=== PATIENT | male | born 1950 | race Caucasian/White ===

== ENCOUNTER 2018-01-03 12:24 | Emergency (ER) | payer MEDICARE, OTHER ==
[~2018-01-03] VITALS: Ht 175.3 cm; Wt 79.4 kg
--- OUTSIDE RECORDS SUMMARY | 2018-01-03 12:26 | XMS REPORT ---
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 Overweight INGUINAL HERNIA 550.90 Active Rodrigue Pace DO Unilateral or unspecified inguinal hernia, without mention of obstruction or gangrene (not specified as recurrent) left side CHRONIC KIDNEY DISEASE STAGE II (MILD) 585.2 Active Tiffanie Duff MD Chronic kidney disease, Stage II (mild) DIABETES MELLITUS, TYPE II, UNCONTROLLED, W/RENAL COMPS 250.42 Active Tiffanie Duff MD Diabetes mellitus with renal manifestations, type II or unspecified type, uncontrolled CAD 414.00 Active Tiffanie Duff MD Coronary atherosclerosis of unspecified type of vessel, salamatof or graft DIABETES MELLITUS 250.00 Active Tiffanie Duff MD Diabetes mellitus without mention of complication, type II or unspecified type, not stated as uncontrolled DYSLIPIDEMIA 272.4 Active Tiffanie Duff MD Other and unspecified hyperlipidemia HYPERTENSION 401.1 Active Tiffanie Duff MD Benign essential hypertension PASSIVE SMOKE EXPOSURE E869.4 Active Luna Snell D.O. Accidental poisoning from second-hand tobacco smoke Medication List Medication Instructions Start Date Stop Date Generic Name NDC Status Provider Patient Instruction JARDIANCE 25 MG ORAL TABLET take 1 tablet daily EMPAGLIFLOZIN 83694357545 Active Jv Chawla MD Active GLIPIZIDE 10 MG ORAL TABLET 1 tab By Mouth BID GLIPIZIDE 73126492470 Active Jv Chawla MD Active ACARBOSE 50 MG ORAL TABLET 1 By Mouth three times a day ACARBOSE 47226079567 Active Jv Chawla MD Active CLOPIDOGREL BISULFATE 75 MG ORAL TABLET 1 Tablet Daily CLOPIDOGREL BISULFATE 19386172474 Active Jv Chawla MD Active SIMVASTATIN 40 MG ORAL TABLET 1 by mouth every night SIMVASTATIN 14896404539 Active Jv Chawla MD Active ASPIRIN 81 MG ORAL TABLET 1 by mouth every day ASPIRIN 72904668873 Active Luna Snell D.O. Active MULTIVITAMINS ORAL CAPSULE has own multivitamin daily MULTIPLE VITAMIN 81179769276 Active Luna Snell D.O. Active LISINOPRIL 10 MG ORAL TABLET 1 Tablet Daily LISINOPRIL 73830972171 Active Jv Chawla MD Active METFORMIN HCL 1000 MG ORAL TABLET 1 Tablet Twice A Day One in Morning And One At night METFORMIN HCL 63112915603 Active Jv Chawla MD Active METOPROLOL TARTRATE 50 MG ORAL TABLET take 1 tablet By Mouth Twice a Day with meals. METOPROLOL TARTRATE 65554124236 Active Jv Chawla MD Active GLYBURIDE 5 MG ORAL TABLET 1 by mouth twice a day GLYBURIDE 5 MG ORAL TABLET 078340 GLYBURIDE Inactive GLYBURIDE 5 MG ORAL TABLET 1 by mouth twice a day GLYBURIDE 80328366916 No Longer Active Luna Snell D.O. Active Vital Signs Date Name Value Unit Range Description blood pressure, diastolic 76 mm[Hg] BP leach blood pressure, systolic 134 mm[Hg] BP sys height E&M 69 [in_us] Bdy height pulse rate E&M 62 /min Heart rate respiratory rate E&M 18 /min Resp rate temperature E&M 97.6 [degF] Body temperature weight E&M 186 [lb_av] Weight Measured blood pressure, diastolic 80 mm[Hg] BP leach blood pressure, systolic 129 mm[Hg] BP sys height E&M 69 [in_us] Bdy height pulse rate E&M 47 /min Heart rate respiratory rate E&M 20 /min Resp rate temperature E&M 98.4 [degF] Body temperature weight E&M 189.40 [lb_av] Weight Measured Diagnostic Results Date Name Value Unit Range Description Office Visit: Adult Followup Room 1 Dr Johnson - Chemistry blood glucose, via home monitor 165 at home mg/dL Lab Report: CBC With Differential/Platelet, Comp. Metabolic Panel (14), ... - Hematology lymphocyte count, blood, automated 2.5 X10E3/UL 10*3/mm3 0.7-3.1 Lab Report: CBC With Differential/Platelet, Comp. Metabolic Panel (14), ... - Chemistry urea nitrogen, blood 17 mg/dL 8-27 creatinine, serum 1.05 mg/dL 0.76-1.27 chloride, serum 96 mmol/L 97-108 Lab Report: CBC With Differential/Platelet, Comp. Metabolic Panel (14), ... - Hematology mean corpuscular volume, RBC 89 fL 79-97 Lab Report: CBC With Differential/Platelet, Comp. Metabolic Panel (14), ... - Chemistry triglyceride, serum, fasting 420 mg/dL 0-149 Lab Report: CBC With Differential/Platelet, Comp. Metabolic Panel (14), ... - Hematology erythrocyte (RBC) count 4.74 X10E6/UL 10*6/mm3 4.14-5.80 Lab Report: CBC With Differential/Platelet, Comp. Metabolic Panel (14), ... - Chemistry Estimated Glomerular Filtration Rate (calc) 75 mL/min/1.73m2 >59 Lab Report: CBC With Differential/Platelet, Comp. Metabolic Panel (14), ... - Hematology platelet count 207 X10E3/UL 10*3/mm3 442-072 7974/08/16 red blood cell distribution width 16.3 % 12.3-15.4 Lab Report: CBC With Differential/Platelet, Comp. Metabolic Panel (14), ... - Chemistry protein, total, serum 7.3 g/dL 6.0-8.5 HDL cholesterol, serum 45 mg/dL >39 albumin/globulin ratio, serum 1.4 1.1-2.5 Lab Report: CBC With Differential/Platelet, Comp. Metabolic Panel (14), ... - Hematology eosinophils as percent of blood leukocytes 2 % Lab Report: CBC With Differential/Platelet, Comp. Metabolic Panel (14), ... - Chemistry Absolute Neutrophils 4.8 X10E3/UL 10*3/uL 1.4-7.0 Lab Report: CBC With Differential/Platelet, Comp. Metabolic Panel (14), ... - Hematology basophil count, absolute 0.0 x10E3/uL 0.0-0.2 Lab Report: Microalb/Creat Ratio, Randm Ur, Hemoglobin A1c - Chemistry microalbumin/creatinine ratio, urine 43.6 MG/G CREAT ug/mg 0.0-30.0 Lab Report: CBC With Differential/Platelet, Comp. Metabolic Panel (14), ... - Chemistry alanine aminotransferase (SGPT), serum 20 U/L 0-44 LDL cholesterol, serum TRIGHI mg/dL mg/dL 0-99 Lab Report: CBC With Differential/Platelet, Comp. Metabolic Panel (14), ... - Hematology monocytes as percent of blood leukocytes 6 % Lab Report: CBC With Differential/Platelet, Comp. Metabolic Panel (14), ... - Chemistry cholesterol, serum 182 mg/dL 100-199 Lab Report: CBC With Differential/Platelet, Comp. Metabolic Panel (14), ... - Hematology mean corpuscular hemoglobin concentration, RBC 33.5 G/DL % 31.5-35.7 hemoglobin, blood 14.1 g/dL 12.6-17.7 leukocyte count, blood 7.9 X10E3/UL 10*3/mm3 3.4-10.8 hematocrit, blood 42.1 % 37.5-51.0 Lab Report: CBC With Differential/Platelet, Comp. Metabolic Panel (14), ... - Chemistry globulin, serum 3.1 1.5-4.5 thyroid stimulating hormone, serum 1.440 u[iU]/mL 0.450-4.500 albumin, serum 4.2 g/dL 3.6-4.8 Internal Correspondence: Pre-Visit Planning - Other List of providers caring for patient Anupama Ferrara, Kati Webb and Patsy Arrington Lab Report: CBC With Differential/Platelet, Comp. Metabolic Panel (14), ... - Chemistry very low density lipoproteins VLDLCH mg/dL mg/dL 5-40 calcium, serum 9.9 mg/dL 8.6-10.2 Office Visit: Adult Followup Dr chawla 3 - Chemistry blood glucose, 2 hours postprandial 598 mg/dL Lab Report: CBC With Differential/Platelet, Comp. Metabolic Panel (14), ... - Hematology basophils as percent of blood leukocytes 0 % Lab Report: Microalb/Creat Ratio, Rand Ur, Hemoglobin A1c - Urinalysis microalbumin/total urine volume 35.6 mg/L Not Estab. Lab Report: CBC With Differential/Platelet, Comp. Metabolic Panel (14), ... - Hematology monocyte count, blood, automated 0.4 X10E3/UL 10*3/uL 0.1-0.9 Lab Report: CBC With Differential/Platelet, Comp. Metabolic Panel (14), ... - Chemistry urea nitrogen/creatinine ratio, serum 16 10-22 immature granulocytes, percentage of total cells, blood 0 % Lab Report: CBC With Differential/Platelet, Comp. Metabolic Panel (14), ... - Genetics/fertility eGFR if 86 mL/min/1.73m2 >59 Lab Report: CBC With Differential/Platelet, Comp. Metabolic Panel (14), ... - Hematology lymphocytes as percent of blood leukocytes 32 % Office Visit: Adult Followup Room 1 Dr Johnson - Basic blood glucose, calculated mean 117-125 mg/dL Lab Report: CBC With Differential/Platelet, Comp. Metabolic Panel (14), ... - Chemistry carbon dioxide, venous blood 22 mmol/L 18- sodium, serum 137 mmol/L 134-144 Lab Report: Microalb/Creat Ratio, Rand Ur, Hemoglobin A1c - Chemistry hemoglobin A1C, blood, as % of total hemoglobin 11.5 % 4.8-5.6 Office Visit: Adult Followup Room 1 Dr Johnson - Chemistry blood glucose, fasting 271 mg/dL Lab Report: CBC With Differential/Platelet, Comp. Metabolic Panel (14), ... - Chemistry alkaline phosphatase, serum 101 U/L 39-117 Lab Report: CBC With Differential/Platelet, Comp. Metabolic Panel (14), ... - Hematology Eosinophil Absolute Count 0.1 X10E3/UL 10*3/uL 0.0-0.4 mean corpuscular hemoglobin, RBC 29.7 pg 26.6-33.0 Lab Report: CBC With Differential/Platelet, Comp. Metabolic Panel (14), ... - Chemistry bilirubin, serum, total 0.5 mg/dL 0.0-1.2 Lab Report: Microalb/Creat Ratio, Randm Ur, Hemoglobin A1c - Chemistry creatinine, random, urine 81.7 mg/dL Not Estab. Lab Report: CBC With Differential/Platelet, Comp. Metabolic Panel (14), ... - Hematology neutrophils as percent of blood leukocytes 60 % Office Visit: Adult Followup///# 1_Koy - Chemistry blood glucose, random 367 mg/dL Lab Report: CBC With Differential/Platelet, Comp. Metabolic Panel (14), ... - Chemistry potassium, serum 5.0 mmol/L 3.5-5.2 aspartate aminotransferase (SGOT), serum 18 U/L 0-40 Encounters Date Encounter Provider Code Facility 11:14:55 CDT Est Patient Exp Problem - 10347 Jv Chawla MD CPT-41013 [facility] 15:42:49 CDT Est Patient Exp Problem - 76526 Jv Chawla MD CPT-29530 [facility] 17:01:37 [employer]CTION[employer] SPECIALIST Est Patient Exp Problem - 01026 Jv Chawla MD CPT-37928 [facility] 10:10:21 [employer]AL CASEWORK SPECIALIST Est Patient Exp Problem - 11131 Luna Escobarie D.O. CPT-42424 [facility] 12:06:07 CDT Est Patient Exp Problem - 70684 Luna Canodaie D.O. CPT-67645 [facility] 13:18:28 CDT Est Patient Exp Problem - 78561 Luisana Ying MD CPT-12985 [facility] 17:16:44 CDT Est Patient Exp Problem - 54764 Luna Escobarie D.O. CPT-49131 [facility] 11:55:41 CDT Est Patient Exp Problem - 72885 Luna Canodaie D.O. CPT-26497 [facility] 09:03:30 CDT Est Patient Exp Problem - 88493 Luna Canodaie D.O. CPT-07416 [facility] 15:04:50 CDT Est Patient Exp Problem - 72163 Luna Canodaie D.O. CPT-77511 [facility] 09:27:29 CDT Est Patient Exp Problem - 38921 Luna M Ehdaie D.O. CPT-65917 [facility] 09:35:57 [employer]WORK SPECIALIST Est Patient Exp Problem - 17664 Luna Snell D.O. CPT-77446 [facility] 14:28:23 CDT Est Patient Exp Problem - 83816 Rodrigue Pace DO CPT-37429 [facility] 14:45:33 CDT Est Patient Exp Problem - 14444 Tiffanie Duff MD CPT-98275 [facility] 11:49:03 CDT Est Patient Exp Problem - 09762 Tiffanie Duff MD CPT-74865 [facility] 09:19:00 [employer]AL CASEWORK SPECIALIST Est Patient Exp Problem - 68971 Tiffanie Duff MD CPT-01862 [facility] 11:50:00 [employer]RECTIONAL CASEWORK SPECIALIST Est Patient Detailed - 18694 Tiffanie Duff MD CPT-44102 [facility]
[2018-01-03 13:57] LABS: BILIRUBIN,URINE NEGATIVE (NEGATIVE); CLARITY,URINE CLEAR (CLEAR); COLOR,URINE YELLOW (YELLOW); KETONES,URINE NEGATIVE (NEGATIVE); LEUKOCYTE ESTERASE ,URINE NEGATIVE (NEGATIVE); NITRITE,URINE NEGATIVE (NEGATIVE); PROTEIN,URINE DIPSTICK NEGATIVE (NEGATIVE); URINE UROBILINOGEN 0.2 mg/dL (0.2 - 1)
[2018-01-03 14:20] LABS: BASOPHILS % 0.3 % (0.0-1.0); EOSINOPHILS # (AUTO) 0.1 (0.0-0.4); EOSINOPHILS % 2.1 % (0.0-6.0); HEMATOCRIT 27.4 % (38.2-49.6); HEMOGLOBIN 9.2 g/dL (14.0-18.0); LYMPHOCYTES # (AUTO) 1.7 (1.0-3.2); LYMPHOCYTES % 25.3 % (18.0-39.1); MEAN CORPUSCULAR HEMOGLOBIN 32.3 pg (28-32); MEAN CORPUSCULAR HGB CONC 33.6 g/dL (31-35); MEAN CORPUSCULAR VOLUME 96.1 fL (81-99); MONOCYTES # (AUTO) 0.5 (0.2-0.8); MONOCYTES % 7.1 % (4.4-11.3); NEUTROPHILS # (AUTO) 4.4 (2.1-6.9); NEUTROPHILS % 64.9 % (38.7-80.0); PLATELET COUNT 162 x10e3/uL (140-360); RED BLOOD COUNT 2.85 x10e6/uL (4.3-5.7); RED CELL DISTRIBUTION WIDTH 15.5 % (11.7-14.4)
[2018-01-03 14:31] LABS: BACTERIA,URINE RARE /HPF; EPITHELIAL CELLS,URINE RARE /LPF; RBC,URINE 0-5 /HPF (0-5); TRANSITIONAL EPI CELLS,URINE FEW; WBC,URINE (MAN) 0-5 /HPF (0-5)
[2018-01-03 14:43] LABS: INR 0.87; PARTIAL THROMBOPLASTIN TIME 27.8 seconds (23.8-35.5); PROTHROMBIN TIME 12.6 seconds (11.9-14.5)
[2018-01-03 14:47] LABS: CREATINE KINASE MB 1.7 ng/mL (0-5.0)
[2018-01-03 15:02] LABS: ALANINE AMINOTRANSFERASE 38 IU/L (0-55); ALBUMIN 3.3 g/dL (3.5-5.0); ALBUMIN/GLOBULIN RATIO 1.1 (0.8-2.0); ALKALINE PHOSPHATASE 86 IU/L (40-150); ANION GAP 16.8 mmol/L (8-16); BLOOD UREA NITROGEN 27 mg/dL (7-26); BUN/CREATININE RATIO 25 (6-25); CARBON DIOXIDE 23 mmol/L (22-29); CHLORIDE 99 mmol/L (98-107); EST GLOMERULAR FILTRATION RATE > 60 ML/MIN (60-); GLUCOSE 320 mg/dL (74-118); POTASSIUM 4.8 mmol/L (3.5-5.1); SODIUM 134 mmol/L (136-145)
[2018-01-03] MEDS ORDERED: SODIUM CHLORIDE 0.9% 1000ML 1,000 ML IV STA (15:11)
[2018-01-03] MEDS ORDERED: SODIUM CHLORIDE 0.9% 500ML 500 ML IV ONE (15:15)
[2018-01-03] MEDS ORDERED: INSULIN LISPRO 100 UNIT/1 ML 3ML VIAL SQ ONE (15:15)
== END 2018-01-03 16:16 | disposition home or self-care (01) ==
LOC: ER 12:24
DX: D63.1 Anemia in chronic kidney disease (principal); E11.65 Type 2 diabetes mellitus with hyperglycemia; I10 Essential (primary) hypertension; I51.9 Heart disease, unspecified
CPT/HCPCS: 36415; 80053; 81001; 82550; 82553; 82948; 84484; 85025; 85610; 85730; 99284; J7040

== ENCOUNTER → 2018-04-01 | Day surgery (SDC) | payer MEDICARE ==
[~2018-04-01] MED LIST: ASPIRIN81 MG PO; BELLADONNA/OPIUM 30 MG SUPP RC ONE; CLINDAMYCIN 600MG / 50ML 50 ML IV ONE; CLOPIDOGREL75 MG PO; DEXAMETHASONE SOD PHOS INJ 4 MG/ML VIAL ONE; EPHEDRINE SULFATE INJ 50 MG/10 ML SYR ONE; FENTANYL CITRATE/PF 100MCG/2 ML INJ ONE; FLOMAX0.4 MG PO; GENTAMICIN 80MG/NS 100 ML 200 ML IV ONE; GLIPIZIDE5 MG PO; HUMALOG100 UNIT/1 SQ; INSULIN REGULAR, HUMAN 100 UNIT/1 ML 3ML VIAL ONE; IOPAMIDOL 610MG/1ML 300 MG/ML VIAL IV ONE; LEVEMIR100 UNIT/1 SQ; LIDOCAINE HCL 2% LOCAL INJ 5 ML SDV VIAL INJ ONE; METFORMIN HCL500 MG PO; METOPROLOL TART50 MG PO; ONDANSETRON HCL INJ 2MG/ML 2ML 2 MG/ML VIAL ONE; PIPER-TAZ 3.375 GM 50 ML ONE; PROPOFOL IV EMULSION 10 MG/ML 20 ML VIAL ONE; SEVOFLURANE INHAL SOLN 250 ML PEN BTL ONE; SIMVASTATIN40 MG PO
--- OUTSIDE RECORDS SUMMARY | 2018-04-01 08:13 | XMS REPORT | Continuity of Care Document ---
Author Author [facility] Interface Address Unknown Phone Unavailable Problems Problem Status Onset Date Classification Date Reported Comments Source SON PANDA Active 12/22/2017 [facility] ENCEPHALOPATHY Active 12/22/2017 [facility] FALL Active 12/22/2017 [facility] BMI 27.0-27.9 Active 07/23/2017 Diagnosis 07/26/2017 [facility] Hyperlipidemia Active 11/11/2016 Diagnosis 07/26/2017 [facility] Overweight Active 06/16/2015 Diagnosis 07/26/2017 [facility] INGUINAL HERNIA Active 09/30/2013 Diagnosis 07/26/2017 [facility] DIABETES MELLITUS, TYPE II, UNCONTROLLED, W/RENAL COMPS Active 04/08/2013 Diagnosis 07/26/2017 [facility] CHRONIC KIDNEY DISEASE STAGE II Active 04/08/2013 Diagnosis 07/26/2017 [facility] DIABETES MELLITUS Active 03/05/2013 Diagnosis 07/26/2017 [facility] HYPERTENSION Active 03/05/2013 Diagnosis 07/26/2017 [facility] CAD Active 03/05/2013 Diagnosis 07/26/2017 [facility] DYSLIPIDEMIA Active 03/05/2013 Diagnosis 07/26/2017 [facility] PASSIVE SMOKE EXPOSURE Active Diagnosis 07/26/2017 [facility] ENCEPHALOPATHY, UNSPECIFIED Active [facility] Medications Medication Details Route Status Patient Instructions Ordering Provider Order Date Source JARDIANCE 25 MG ORAL TABLET take 1 tablet daily Active take 1 tablet daily 12/07/2015 [facility] GLIPIZIDE 1 tab By Mouth BID Active 1 tab By Mouth BID 07/12/2014 [facility] ACARBOSE 1 By Mouth three times a day Active 1 By Mouth three times a day 06/03/2014 [facility] CLOPIDOGREL BISULFATE 1 Tablet Daily Active 1 Tablet Daily 06/03/2014 [facility] SIMVASTATIN 1 by mouth every night Active 1 by mouth every night 06/03/2014 [facility] MULTIPLE VITAMIN has own multivitamin daily Active has own multivitamin daily 05/02/2014 [facility] ASPIRIN 1 by mouth every day Active 1 by mouth every day 05/02/2014 [facility] METOPROLOL TARTRATE take 1 tablet By Mouth Twice a Day with meals. Active take 1 tablet By Mouth Twice a Day with meals. 03/30/2014 [facility] METFORMIN HCL 1 Tablet Twice A Day One in Morning And One At night Active 1 Tablet Twice A Day One in Morning And One At night 03/30/2014 [facility] LISINOPRIL 1 Tablet Daily Active 1 Tablet Daily 03/30/2014 [facility] GLYBURIDE 1 by mouth twice a day No Longer Active 1 by mouth twice a day 03/30/2014 [facility] Allergies, Adverse Reactions, Alerts Substance Category Reaction Severity Reaction type Status Date Reported Comments Source Immunizations Immunization Date Given Site Status Last Updated Comments Source Results Order Name Results Value Reference Range Date Interpretation Comments Source Capillary blood glucose measurement by glucometer (mass/volume) 305 70 - 120 01/03/2018 [facility] Blood leukocytes automated count (number/volume) 6.77 4.8 - 10.8 01/03/2018 [facility] Blood erythrocytes automated count (number/volume) 2.85 4.3 - 5.7 01/03/2018 [facility] Blood hemoglobin measurement (moles/volume) 9.2 14.0 - 18.0 01/03/2018 [facility] Automated blood hematocrit (volume fraction) 27.4 38.2 - 49.6 01/03/2018 [facility] Automated erythrocyte mean corpuscular volume 96.1 81 - 99 01/03/2018 [facility] Automated erythrocyte mean corpuscular hemoglobin (mass per erythrocyte) 32.3 28 - 32 01/03/2018 [facility] Automated erythrocyte mean corpuscular hemoglobin concentration measurement (mass/volume) 33.6 31 - 35 01/03/2018 [facility] RDW BldCo-Rto 15.5 11.7 - 14.4 01/03/2018 [facility] Automated blood platelet count (count/volume) 162 140 - 360 01/03/2018 [facility] Automated blood segmented neutrophil count as percentage of total leukocytes 64.9 38.7 - 80.0 01/03/2018 [facility] Automated blood lymphocyte count as percentage ot total leukocytes 25.3 18.0 - 39.1 01/03/2018 [facility] Automated blood monocyte count as percentage of total leukocytes 7.1 4.4 - 11.3 01/03/2018 [facility] Automated blood eosinophil count as percentage of total leukocytes 2.1 0.0 - 6.0 01/03/2018 [facility] Automated blood basophil count as percentage of total leukocytes 0.3 0.0 - 1.0 01/03/2018 [facility] IM GRANULOCYTES % 0.3 0.0 - 1.0 01/03/2018 [facility] Automated blood neutrophil count 4.4 2.1 - 6.9 01/03/2018 [facility] Blood lymphocytes count (number/volume) 1.7 1.0 - 3.2 01/03/2018 [facility] Blood monocytes automated count (number/volume) 0.5 0.2 - 0.8 01/03/2018 [facility] Automated blood eosinophil count 0.1 0.0 - 0.4 01/03/2018 [facility] Automated blood basophil count (count/volume) 0.0 0.0 - 0.1 01/03/2018 [facility] Absolute Immature Granulocyte (auto 0.02 0 - 0.1 01/03/2018 [facility] Prothrombin time (PT) in platelet poor plasma by coagulation assay 12.6 11.9 - 14.5 01/03/2018 [facility] INR in Platelet poor plasma by Coagulation assay 0.87 01/03/2018 [facility] Activated partial thromboplastin time (aPTT) in platelet poor plasma bycoagulation assay 27.8 23.8 - 35.5 01/03/2018 [facility] Serum or plasma sodium measurement (moles/volume) 134 136 - 145 01/03/2018 [facility] Serum or plasma potassium measurement (moles/volume) 4.8 3.5 - 5.1 01/03/2018 [facility] Serum or plasma chloride measurement (moles/volume) 99 98 - 107 01/03/2018 [facility] Serum or plasma carbon dioxide, total measurement (moles/volume) 23 22 - 29 01/03/2018 [facility] Serum or plasma anion gap 16.8 8 - 16 01/03/2018 [facility] Serum or plasma urea nitrogen measurement (mass/volume) 27 7 - 26 01/03/2018 [facility] Serum or plasma creatinine measurement (mass/volume) 1.10 0.72 - 1.25 01/03/2018 [facility] Serum or plasma urea nitrogen/creatinine mass ratio 25 6 - 25 01/03/2018 [facility] Estimated glomerular filtration rate (GFR) determination > 60 60 01/03/2018 [facility] Glucose measurement 320 74 - 118 01/03/2018 [facility] Serum or plasma calcium measurement (mass/volume) 8.0 8.4 - 10.2 01/03/2018 [facility] Serum or plasma total bilirubin measurement (mass/volume) 0.6 0.2 - 1.2 01/03/2018 [facility] Aspartate Amino Transf (AST/SGOT) 38 5 - 34 01/03/2018 [facility] Serum or plasma alanine aminotransferase measurement (enzymatic activity/volume) 38 0 - 55 01/03/2018 [facility] Serum or plasma protein measurement (mass/volume) 6.2 6.5 - 8.1 01/03/2018 [facility] Serum or plasma albumin measurement (mass/volume) 3.3 3.5 - 5.0 01/03/2018 [facility] Plasma globulin measurement (mass/volume) 2.9 2.3 - 3.5 01/03/2018 [facility] Serum or plasma albumin/globulin mass ratio 1.1 0.8 - 2.0 01/03/2018 [facility] Serum or plasma alkaline phosphatase measurement (enzymatic activity/volume) 86 40 - 150 01/03/2018 [facility] Serum or plasma creatine kinase measurement (enzymatic activity/volume) 84 30 - 200 01/03/2018 [facility] Serum or plasma creatine kinase MB measurement (mass/volume) 1.70 0 - 5.0 01/03/2018 [facility] Troponin I measurement by highly sensitive enzyme immunoassay 0.019 0 - 0.300 01/03/2018 [facility] Urine color determination YELLOW YELLOW 01/03/2018 [facility] Urine clarity CLEAR CLEAR 01/03/2018 [facility] Specific gravity of Urine by Test strip 1.010 1.010 - 1.025 01/03/2018 [facility] Urine pH measurement by automated test strip 6 5 - 7 01/03/2018 [facility] Urine leukocyte esterase detection by dipstick NEGATIVE NEGATIVE 01/03/2018 [facility] Urine nitrite detection NEGATIVE NEGATIVE 01/03/2018 [facility] Urine protein measurement by test strip (mass/volume) NEGATIVE NEGATIVE 01/03/2018 [facility] Urine glucose detection 3+ NEGATIVE 01/03/2018 [facility] Urine ketones detection by automated test strip NEGATIVE NEGATIVE 01/03/2018 [facility] Urine urobilinogen measurement by test strip (mass/volume) 0.2 0.2 - 1 01/03/2018 [facility] Urine total bilirubin measurement (mass/volume) NEGATIVE NEGATIVE 01/03/2018 [facility] Urine erythrocytes detection NEGATIVE NEGATIVE 01/03/2018 [facility] Automated urine sediment leukocyte count by microscopy (number/high power field) 0-5 0 - 5 01/03/2018 [facility] Erythrocytes detection in urine sediment by light microscopy 0-5 0 - 5 01/03/2018 [facility] Bacteria detection in urine sediment by light microscopy RARE NONE 01/03/2018 [facility] Epithelial cells detection in urine sediment by light microscopy RARE NONE 01/03/2018 [facility] Transitional cells detection in urine sediment by light microscopy FEW NONE 01/03/2018 [facility] Teeth Complete Full Mouth DX Teeth Complete Full Mouth DX EXAM: XR PANOREX DATE: 12/25/2017 1014 hours. INDICATION: - Complaints of oral pain, decreased oral intake of solid foods, poor dentition COMPARISON: None TECHNIQUE: A single Panorex view of the jaw. [place] SECTION: MSK FINDINGS: Evaluation of midline structures limited by tomographic artifact. There is no mandibular fracture. The temporomandibular joints are well aligned. Multiple dental caries are noted. There is a periapical lucency of tooth 7, 19, 28, and 30. IMPRESSION: 1. No acute fracture is identified. 2. Multiple dental caries are noted. 3. Periapical lucencies at tooth 7, 19, 28, and 30 may suggest abscesses. 12/25/2017 - - This report was dictated by a Barrel Lathe Operator Inside/Fellow. I have personally reviewed the images as well as the Resident's interpretation and agree with the findings. Read by: Carli Mehta MD Resident: Carli Mehta MD Dictated Date/time: 12/25/17 13:34 Electronically Signed by: Tiago Rosales MD 12/26/17 07:17 FINAL REPORT [facility] Chest 1view DX Chest 1view DX EXAM: XR CHEST 1 VIEW DATE: 12/25/2017 3:00 AM FICTION AND NONFICTION PROSE WRITER INDICATION: - hypoxia COMPARISON: 12/24/2017 TECHNIQUE: AP chest IMPRESSION: 1. Diminished lung volumes bilaterally with prominent lung vasculature. Mild bibasilar subsegmental platelike atelectatic changes. 2. Prominent lung reticulations again seen with peribronchial cuffing suggestive of pulmonary edema. Superimposed infection cannot be excluded. 3. Small bilateral pleural effusions. 4. Cardiomediastinal silhouette is upper limits normal size. Status post CABG with postsurgical changes. 5. Osseous structures are stable. 12/25/2017 - - Read by: Kishan Torre MD Dictated Date/time: 12/25/17 09:43 Electronically Signed by: Kishan Torre MD 12/25/17 09:44 FINAL REPORT [facility] Brain w/wo contrast MRI Brain w/wo contrast MRI EXAM: MRI BRAIN WITH AND WITHOUT CONTRAST DATE: 12/24/2017 INDICATION: Prior persistent dizziness, nausea, possible posterior stroke? COMPARISON: Brain CT dated 12/22/2017 TECHNIQUE: Multiplanar, multisequence pre- and postcontrast MRI of the brain IV contrast: 16 mL MultiHance FINDINGS: There is no diffusion restriction. GRE failed to disclose any underlying acute intracranial hemorrhage. Along the bilateral convexities are areas of CSF isointense signal on T1 and T2 sequences. These were not evident on the prior CT. There is diffuse pachymeningeal enhancement. Incidental note is made of a localized bony defect defect at the inner table of the left frontal calvarium. There is what appears to be herniation of the dura and CSF into this bony defect (as depicted on series 8 images 23 through 27). Ventricles are unchanged in size. The basal cisterns remain patent. The flow voids of the proximal intracranial arteries are maintained. There are mucosal changes in the bilateral ethmoid air cells. There is a the visible paranasal sinuses are unremarkable. Small amount of mastoid effusions are present bilaterally. 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 Otherwise, the orbital globes are unremarkable. Findings were discussed with Dr. Disha Nicole of the MICU team on 12/25/2017 at 0014 hours, by the undersigned. IMPRESSION: 1. Interval development of small volume subdural effusions, associated with diffuse pachymeningeal enhancement. These findings are consistent with spontaneous intracranial hypotension, which may be related to CSF leak from a recent lumbar puncture. 2. Incidental localized bony defect at the inner table of the left frontal calvarium, with apparent internal herniation through this defect 3. No acute infarct or hemorrhage 4. Mucosal changes in the ethmoid air cells and bilateral mastoid effusions are nonspecific. 12/24/2017 - - Read by: Alexey Leal MD Dictated Date/time: 12/24/17 23:35 Electronically Signed by: Alexey Leal MD 12/25/17 00:32 FINAL REPORT [facility] Chest 1view DX Chest 1view DX EXAM: XR CHEST 1 VIEW DATE: 12/24/2017 9:15 AM FICTION AND NONFICTION PROSE WRITER INDICATION: - Post extubation, orthopnea COMPARISON: 12/23/2017 TECHNIQUE: AP chest IMPRESSION: 1. Interval extubation and removal of nasogastric tube. 2. Diminished lung volumes bilaterally with prominent lung vasculature. Mild bibasilar subsegmental platelike atelectatic changes. Otherwise, lungs are clear. 3. Cardiomediastinal silhouette is upper limits normal size. 4. Osseous structures are stable. 12/24/2017 - - Read by: Kishan Torre MD Dictated Date/time: 12/24/17 10:00 Electronically Signed by: Kishan Torre MD 12/24/17 10:01 FINAL REPORT [facility] Chest 1view DX Chest 1view DX EXAM: XR CHEST 1 VIEW DATE: 12/23/2017 6:14 PM FICTION AND NONFICTION PROSE WRITER INDICATION: - INTUBATED COMPARISON: Same day 1341 hours TECHNIQUE: AP chest FINDINGS: Lines and tubes: Endotracheal tube has its tip approximately 4.8 cm the gay. Nasogastric tube has its tip in the body the stomach. Lungs and pleura: Minor bibasilar atelectatic changes.. No pulmonary or pleural based abnormality is identified. Heart and mediastinum: The heart size is normal for technique. The mediastinal contours are normal. Bones: No acute bony abnormality is identified. IMPRESSION: 1. Minor basilar atelectatic changes. 2. Satisfactory position of life-support lines and tubes. 12/23/2017 - - Read by: Derrick Onofre MD Dictated Date/time: 12/23/17 20:09 Electronically Signed by: Derrick Onofre MD 12/23/17 20:11 FINAL REPORT [facility] Retroperitoneal Complete US Retroperitoneal Complete US EXAM: US RENAL DATE: 12/23/2017 2:55 PM FICTION AND NONFICTION PROSE WRITER INDICATION: - Chronic v acute renal injury COMPARISON: None. TECHNIQUE: Multiplanar grayscale and color Doppler ultrasound of the kidneys and urinary bladder FINDINGS: Right kidney: Size: 13.2 x 6.3 x 6.3 cm. Cortical thickness: Normal. Hydronephrosis: None. Echogenicity: Normal. Calculi: None. Cysts/Masses: None. Extrarenal pelvis observed Left kidney: Size: 12.9 x 5.7 x 5.6 cm. Cortical thickness: Normal. Hydronephrosis: Mild Echogenicity: Normal. Calculi: None. Cysts/Masses: None. Extrarenal pelvis observed Bladder: Decompressed by Zamora catheter. Free fluid: None. Other: None. IMPRESSION: 1. Mild hydronephrosis visualized on the left 2. Bilateral extrarenal pelvis observed 12/23/2017 - - This report was dictated by a Barrel Lathe Operator Inside/Fellow. I have personally reviewed the images as well as the Resident's interpretation and agree with the findings. Read by: Taiwo Bautista MD Resident: Taiwo Bautista MD Dictated Date/time: 12/23/17 16:28 Electronically Signed by: Dwight Holbrook MD 12/23/17 17:55 FINAL REPORT [facility] Chest 1 v for Placement DX Chest 1 v for Placement DX EXAM: XR CHEST 1 VIEW DATE: 12/23/2017 1:32 PM FICTION AND NONFICTION PROSE WRITER INDICATION: Tube placement - Chest 1 view for line placement COMPARISON: Chest x-ray 12/23/2017 TECHNIQUE: AP chest. FINDINGS: Lines, tubes and hardware: Endotracheal tube terminates approximately 5.3 cm above the gay. Enteric tube terminates in the left upper quadrant, likely in the body the stomach, with sidehole below the diaphragm. Median sternotomy wires are unchanged. Lungs and pleura: Lung volumes are low, with bibasilar subsegmental listhesis, overall unchanged. No pleural effusion or pneumothorax. Heart and mediastinum: The cardiomediastinal silhouette is unchanged. Bones: Unchanged. Soft tissues: Unremarkable. IMPRESSION: 1. Interval advancement of the enteric tube. 2. Otherwise no significant change. 12/23/2017 - - This report was dictated by a Barrel Lathe Operator Inside/Fellow. I have personally reviewed the images as well as the Resident's interpretation and agree with the findings. Read by: Alfonso Alvarez MD Resident: Alfonso Alvarez MD Dictated Date/time: 12/23/17 13:52 Electronically Signed by: Paulina Faust MD 12/23/17 16:18 FINAL REPORT [facility] Chest 1view DX Chest 1view DX EXAM: XR CHEST 1 VIEW DATE: 12/23/2017 9:53 AM FICTION AND NONFICTION PROSE WRITER INDICATION: Intubated COMPARISON: Chest x-ray 12/23/2017. TECHNIQUE: AP chest. FINDINGS: Lines, tubes and hardware: The endotracheal tube terminates approximately 5.1 cm above the gay. An enteric tube terminates in the left upper quadrant, with sidehole at the level of the diaphragm. Median sternotomy wires are unchanged. Lungs and pleura: Lung volumes are low, with linear opacities in the lung bases, likely subsegmental atelectasis, which have improved since the prior exam. No pleural effusion or pneumothorax. Heart and mediastinum: The cardiomediastinal silhouette is unchanged. Bones: Unchanged. Soft tissues: Unremarkable. IMPRESSION: 1. Endotracheal tube terminating 5.1 cm above the gay. 2. Interval improvement in bibasilar subsegmental atelectasis, with persistent low lung volumes. 3. Placement of an enteric tube terminating in the body of the stomach, with sidehole at the level of the diaphragm. Advancement is recommended. 12/23/2017 - - This report was dictated by a Barrel Lathe Operator Inside/Fellow. I have personally reviewed the images as well as the Resident's interpretation and agree with the findings. Read by: Alfonso Alvarez MD Resident: Alfonso Alvarez MD Dictated Date/time: 12/23/17 10:30 Electronically Signed by: Paulina Faust MD 12/23/17 10:48 FINAL REPORT [facility] Abdomen AP DX Abdomen AP DX EXAM: XR ABDOMEN 1 VIEW DATE: 12/23/2017 8:23 AM FICTION AND NONFICTION PROSE WRITER INDICATION: - OG placement COMPARISON: 12/23/2017, 0654 hours TECHNIQUE: Limited AP view of the abdomen for tube placement assessment. Number of images: 1 FINDINGS: Transesophageal feeding tube: None Transesophageal suction tube sidehole in the fundus of stomach and needs to be further advanced. Other tubes and lines: None. No other changes. IMPRESSION: Tube positions as above. 12/23/2017 - - Read by: Jamin Puri MD Dictated Date/time: 12/23/17 09:01 Electronically Signed by: Jamin Puri MD 12/23/17 09:02 FINAL REPORT [facility] Chest 1view DX Chest 1view DX EXAM: XR CHEST 1 VIEW DATE: 12/23/2017 6:56 AM FICTION AND NONFICTION PROSE WRITER INDICATION: - post intubation COMPARISON: X-ray chest performed 12/22/2017, 2327 hours TECHNIQUE: AP chest FINDINGS: Lines, tubes and hardware: Endotracheal tube has been placed. Its tip projects over the trachea approximately 2 cm above the gay. Lungs and pleura: Low lung volumes result in vascular crowding and bibasilar subsegmental atelectasis. Heart and mediastinum: The heart size is stable. The mediastinal contours are normal. Bones: No acute bony abnormality is identified. Sternotomy wires remain midline. IMPRESSION: 1. Endotracheal tube tip projects approximately 2 cm above the gay. 2. Low lung volumes resulting in vascular crowding and bibasilar subsegmental atelectasis. 12/23/2017 - - This report was dictated by a Barrel Lathe Operator Inside/Fellow. I have personally reviewed the images as well as the Resident's interpretation and agree with the findings. Read by: Dirk Ca MD Resident: Dirk Ca MD Dictated Date/time: 12/23/17 07:11 Electronically Signed by: Skinny Faustin MD 12/23/17 08:04 FINAL REPORT [facility] Abdomen 1 v for Placement DX Abdomen 1 v for Placement DX EXAM: XR ABDOMEN 1 VIEW DATE: 12/23/2017 2:44 AM FICTION AND NONFICTION PROSE WRITER INDICATION: - NGT placement COMPARISON: None. TECHNIQUE: Limited AP view of the abdomen for tube placement assessment. Number of images: 1 FINDINGS: Transesophageal feeding tube (tip): Tip is in the gastric fundus Transesophageal suction tube (sidehole): Side-port is in the gastric body Other tubes, lines and hardware: Sternotomy wires are incompletely imaged. Gas is scattered throughout the bowel in a nonobstructive pattern. No acute bony abnormality. IMPRESSION: Enteric tube in usual position. 12/23/2017 - - This report was dictated by a Barrel Lathe Operator Inside/Fellow. I have personally reviewed the images as well as the Resident's interpretation and agree with the findings. Read by: Dirk Ca MD Resident: Dirk Ca MD Dictated Date/time: 12/23/17 07:13 Electronically Signed by: Skinny Faustin MD 12/23/17 08:06 FINAL REPORT [facility] Chest 1view DX Chest 1view DX EXAM: XR CHEST 1 VIEW DATE: 12/22/2017 11:27 PM FICTION AND NONFICTION PROSE WRITER INDICATION: - Eval for fever ADDITIONAL INFORMATION: '63 y/o M fall, LSN, yesterday afternoon by family, was mumbling in chair per family stood up fell hit head on dresser, HX HTN, Triple bypass on plavix.' COMPARISON: Chest radiograph from same day at 1813 hours TECHNIQUE: AP supine chest. [place] SECTION: ER FINDINGS: Lines, tubes and hardware: Median sternotomy wires are intact with mediastinal surgical clips. Lungs and pleura: Low lung volumes are present, with bibasilar subsegmental atelectasis. A left retrocardiac opacity is identified. Heart and mediastinum: The heart size is normal for technique. There is a mildly tortuous thoracic aorta with calcification along the arch. Pulmonary vascularity is normal. Bones: No acute abnormality. Soft tissues: Unremarkable. IMPRESSION: 1. Left retrocardiac opacity may be compatible with atelectasis, aspiration or early consolidation. 2. Otherwise low lung volumes with bibasilar subsegmental atelectasis. 12/22/2017 - - This report was dictated by a Barrel Lathe Operator Inside/Fellow. I have personally reviewed the images as well as the Resident's interpretation and agree with the findings. Read by: Beni Tapia MD Resident: Beni Tapia MD Dictated Date/time: 12/22/17 23:52 Electronically Signed by: Shan Martinez MD 12/23/17 01:10 FINAL REPORT [facility] Spine cervical wo contrast CT (ER) Spine cervical wo contrast CT (ER) EXAM: CT CERVICAL SPINE WITHOUT CONTRAST DATE: 12/22/2017 6:27 PM FICTION AND NONFICTION PROSE WRITER INDICATION: fall trauma - fall trauma COMPARISON: None available TECHNIQUE: Volumetric CT of the cervical spine is acquired without contrast. Axial, coronal and sagittal images are provided. IV contrast: None. DLP: 683 mGy-cm [place] SECTION: ER FINDINGS: The spine is imaged from the skull base to the level of T2. There is congenital fusion of C2, C3. Alignment is normal. Small multilevel anterior osteophytes are present. There is moderate to severe right C3-4 facet degeneration. Mild C5-6 disc space narrowing is noted. Mild levoscoliosis of the spine is present. Vertebral body heights are preserved. The pre and paravertebral soft tissues are within normal limits. There is no apical pneumothorax.. IMPRESSION: 1. No acute fracture or malalignment of cervical spine 2. Congenital fusion of C2 and C3 3. Degenerative changes of the spine, as described 12/22/2017 - - This report was dictated by a Barrel Lathe Operator Inside/Fellow. I have personally reviewed the images as well as the Resident's interpretation and agree with the findings. Read by: Beni Tapia MD Resident: Beni Tapia MD Dictated Date/time: 12/22/17 18:46 Electronically Signed by: Howard Chacko MD 12/22/17 18:55 FINAL REPORT [facility] Brain/Neck Stroke perfusion CTA Brain/Neck Stroke perfusion CTA EXAM: CT ANGIOGRAM OF THE BRAIN EXAM: CT ANGIOGRAM OF THE NECK EXAM: CT PERFUSION OF THE BRAIN DATE: 12/22/2017 INDICATION: Fall, head trauma COMPARISON: None TECHNIQUE: - Dynamic CT perfusion images on a limited area of the brain parenchyma are performed during bolus injection of iodinated contrast material. Color maps of relative cerebral blood flow, relative cerebral blood volume, time to peak, and mean transit time are created on an independent workstation and are submitted along with the source image data. -Rapid acquisition spiral CT images of the brain and neck were obtained between the aortic arch and the cranial vertex during intravenous infusion of iodinated contrast for the purposes of CT angiography. 3-D CT angiographic images are created using maximum intensity projection technique at the acquisition workstation. The source images are also presented for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
[2018-04-01 09:00] LABS: BASOPHILS % 0.3 % (0.0-1.0); EOSINOPHILS # (AUTO) 0.1 (0.0-0.4); EOSINOPHILS % 1.2 % (0.0-6.0); HEMOGLOBIN 13.3 g/dL (14.0-18.0); LYMPHOCYTES # (AUTO) 1.6 (1.0-3.2); LYMPHOCYTES % 21.8 % (18.0-39.1); MEAN CORPUSCULAR HEMOGLOBIN 28.9 pg (28-32); MEAN CORPUSCULAR HGB CONC 33.3 g/dL (31-35); MEAN CORPUSCULAR VOLUME 86.8 fL (81-99); MONOCYTES # (AUTO) 0.5 (0.2-0.8); MONOCYTES % 7.1 % (4.4-11.3); NEUTROPHILS # (AUTO) 5.1 (2.1-6.9); NEUTROPHILS % 69.3 % (38.7-80.0); PLATELET COUNT 125 x10e3/uL (140-360); RED BLOOD COUNT 4.61 x10e6/uL (4.3-5.7); RED CELL DISTRIBUTION WIDTH 14.8 % (11.7-14.4)
[2018-04-01 09:20] LABS: ANION GAP 15.2 mmol/L (8-16); BLOOD UREA NITROGEN 21 mg/dL (7-26); BUN/CREATININE RATIO 18 (6-25); CALCIUM 9.3 mg/dL (8.4-10.2); CARBON DIOXIDE 25 mmol/L (22-29); CHLORIDE 99 mmol/L (98-107); CREATININE, SERUM 1.18 mg/dL (0.72-1.25); EST GLOMERULAR FILTRATION RATE > 60 ML/MIN (60-); GLUCOSE 300 mg/dL (74-118); POTASSIUM 4.2 mmol/L (3.5-5.1); SODIUM 135 mmol/L (136-145)
--- NOTE | 2018-04-01 10:10 | Diagnostic Imaging Report ---
EXAMINATION: CHEST 2 VIEWS INDICATION: ^PRE-OP PROSTATE BIOPSY ^[id number] ^0940 ^ACU 1 COMPARISON: None FINDINGS: PA and lateral views TUBES and LINES: None. LUNGS: Low lung volumes. Retrocardiac hazy opacification. PLEURA: No pleural effusion or pneumothorax. HEART AND MEDIASTINUM: The cardiac silhouette is borderline enlarged. Median sternotomy wires and mediastinal surgical clips. BONES AND SOFT TISSUES: No acute osseous lesion. Soft tissues are unremarkable. UPPER ABDOMEN: No free air under the diaphragm. IMPRESSION: Retrocardiac hazy opacification, probably atelectasis. Underlying infiltrate cannot be excluded in the appropriate clinical setting. Signed by: Dr. Shukri Maxwell MD on 04/01/2018 10:07 AM
[2018-04-01 12:15] VITALS: BP 145/65
--- NOTE | 2018-04-20 08:41 | Operative Report ---
DATE OF PROCEDURE: 04/01/2018 SURGEON: Dawson Smith MD PREOPERATIVE DIAGNOSES: 1. Elevated PSA. 2. History of urolithiasis. POSTOPERATIVE DIAGNOSES: 1. Elevated PSA. 2. History of urolithiasis. OPERATIONS PERFORMED: 1. Prostate ultrasonography interpretation. 2. Ultrasonographic guidance for needle biopsies interpretation. 3. Transrectal needle biopsies of the prostate (separate procedure performed for the elevated PSA). 4. Cystourethroscopy with bilateral ureteral catheterization and retrograde ureteropyelography (separate procedure performed for the urolithiasis evaluation). 5. Interpretation of retrograde ureteropyelography. 6. Supervision of fluoroscopy, no radiologist present. ANESTHESIA: General. COMPLICATIONS: None. CLINICAL SUMMARY: Eddie Mcdaniel is a 68-year-old man with elevated PSA. His PSA has risen from 14.8 to 27.2. He is brought for the above procedures. He is aware of the risks of bleeding, infection, injury to adjacent structures, need for additional procedures and elected to proceed. PROCEDURE IN DETAIL: Informed consent was verified. Eddie Mcdaniel was preoperatively identified, taken to the operating room, placed on the cystoscopy table in supine position. Anesthesia was uneventfully begun. The patient was then carefully and gently repositioned in the dorsal lithotomy position with all pressure points well padded. Transrectal sonography was performed. Interpretation of Prostate Ultrasonography: Real-time ultrasonography revealed a 40 mL prostate that was slightly hypoechoic at the peripheral zone, more prominent on the left side than on the right side. There was some minimal amount of calcification in the transition zone. With ultrasonographic guidance, needle biopsies of the prostate were taken. Multiple biopsies were taken at each of six locations. These were sent in six different specimen containers and they were differentiated right versus left, mid versus base versus apex. Once we obtained all biopsies, the patient's genitalia were then prepared and draped in usual sterile fashion. The cystoscope sheath with the visual obturator in place was atraumatically inserted into the patient's urethra. It was guided down the relatively unremarkable urethra, passed through normal sphincteric region through the prostate bed, which was significant for visual obstructing BPH and we entered the patient's bladder, which exhibited grade 1 trabeculations, but no tumors, no stones, and no diverticula. Normally positioned and configured ureteral orifices were identified. An 8-Luxembourger catheter was used to cannulate each ureter and retrograde ureteropyelograms were performed. Interpretation of Retrograde Ureteropyelography: Contrast was instilled in a retrograde fashion bilaterally. There were no tumors, no stones, and no diverticula. Unobstructed drainage was observed bilaterally fluoroscopically. The patient's bladder was then drained and the cystoscope was withdrawn, and the patient was uneventfully reversed from anesthesia and taken to recovery room in stable condition. Plans will be to follow the patient up in the office and eagerly await the biopsy results. Dawson MD Luis [place]/MODL /[id number] cc: Festus Ornelas MD
== END | disposition home or self-care (01) ==
LOC: OR 08:10
PROVIDERS: ATTEND Urology
DX: C61 Malignant neoplasm of prostate (principal); Z87.442 Personal history of urinary calculi; N40.1 Benign prostatic hyperplasia with lower urinary tract symptoms; N13.8 Other obstructive and reflux uropathy; R35.1 Nocturia; R39.14 Feeling of incomplete bladder emptying; N32.89 Other specified disorders of bladder; I10 Essential (primary) hypertension; E11.9 Type 2 diabetes mellitus without complications; I25.810 Atherosclerosis of coronary artery bypass graft(s) without angina pectoris; Z79.82 Long term (current) use of aspirin; Z79.02 Long term (current) use of antithrombotics/antiplatelets; Z79.4 Long term (current) use of insulin; Z95.1 Presence of aortocoronary bypass graft; Z95.5 Presence of coronary angioplasty implant and graft
CPT/HCPCS: 36415; 52005; 55700; 71046; 74420; 76872; 80048; 82948; 85025; 88305; 93005; J1100; J1580; J1817; J2001; J2405; J2543; J2704; Q9967; 76998

== ENCOUNTER → 2018-04-30 | Outpatient (CLI) | payer MEDICARE ==
[~2018-04-30] MED LIST changes: -BELLADONNA/OPIUM 30 MG SUPP RC ONE; -CLINDAMYCIN 600MG / 50ML 50 ML IV ONE; -DEXAMETHASONE SOD PHOS INJ 4 MG/ML VIAL ONE; -EPHEDRINE SULFATE INJ 50 MG/10 ML SYR ONE; -FENTANYL CITRATE/PF 100MCG/2 ML INJ ONE; -GENTAMICIN 80MG/NS 100 ML 200 ML IV ONE; -INSULIN REGULAR, HUMAN 100 UNIT/1 ML 3ML VIAL ONE; +IOPAMIDOL 370 MG/ML 200 ML INFUS..BTL INJ ONE; -IOPAMIDOL 610MG/1ML 300 MG/ML VIAL IV ONE; -LIDOCAINE HCL 2% LOCAL INJ 5 ML SDV VIAL INJ ONE; -ONDANSETRON HCL INJ 2MG/ML 2ML 2 MG/ML VIAL ONE; -PIPER-TAZ 3.375 GM 50 ML ONE; -PROPOFOL IV EMULSION 10 MG/ML 20 ML VIAL ONE; -SEVOFLURANE INHAL SOLN 250 ML PEN BTL ONE; +SODIUM CHLORIDE 0.9% 50ML 50 ML ONE
[2018-04-30 11:02] LABS: BLOOD UREA NITROGEN 29 mg/dL (7-26); BUN/CREATININE RATIO 28 (6-25); CREATININE, SERUM 1.02 mg/dL (0.72-1.25); EST GLOMERULAR FILTRATION RATE > 60 ML/MIN (60-)
--- NOTE | 2018-04-30 12:02 | Diagnostic Imaging Report ---
EXAM: CT Abdomen and Pelvis WITH contrast INDICATION: Prostate cancer. COMPARISON: None. TECHNIQUE: Abdomen and pelvis were scanned utilizing a multidetector helical scanner from the lung base to the pubic symphysis after administration of IV contrast. Coronal and sagittal reformations were obtained. Routine protocol was performed. Scan was performed when during portal venous phase. IV CONTRAST: 100 cc of Isovue 370. ORAL CONTRAST: Water COMPLICATIONS: None RADIATION DOSE: Total DLP: 457 mGy*cm CTDIvol has been reviewed. It is below the limits set by the Radiation Protocol Committee (RPC). FINDINGS: LINES and TUBES: None. LOWER THORAX: Patchy dependent atelectasis. There is a calcified granuloma in the right lower lobe. Extensive coronary atherosclerosis. There are coronary stents. HEPATOBILIARY: No evidence of solid mass. Multiple calcified granulomas. No biliary ductal dilation. GALLBLADDER: Decompressed with numerous gallstones. No surrounding inflammatory changes. SPLEEN: No splenomegaly. Calcified granulomas. Subcentimeter splenic hypodensity is too small to characterize, but likely represents a cyst. PANCREAS: No focal masses or ductal dilatation. ADRENALS: No adrenal nodules KIDNEYS/URETERS: Kidneys enhance symmetrically. No evidence of solid mass. There is bilateral pelviectasis, left greater than right without evidence of caliectasis. There is an 8 mm left upper pole renal stone. GI TRACT: No evidence of bowel obstruction. There is decompression with mild wall thickening within the ascending and transverse colon. Normal appendix. PELVIC ORGANS/BLADDER: Prostatomegaly measuring 5.4 cm. LYMPH NODES: No lymphadenopathy. VESSELS: Unremarkable. PERITONEUM / RETROPERITONEUM: No free air or fluid. BONES AND SOFT TISSUES: No acute osseous abnormality. No suspicious lytic or blastic lesions. CONCLUSION: No specific evidence of metastatic disease within the abdomen or pelvis. Prostatomegaly. Nonobstructing left upper pole renal stone measuring 8 mm. Cholelithiasis. Signed by: Dr. Juan J Ramos MD on 04/30/2018 11:59 AM
--- NOTE | 2018-04-30 13:08 | Diagnostic Imaging Report ---
EXAM: CHEST 2 VIEWS DATE: 04/30/2018 9:53 AM INDICATION: Prostate cancer COMPARISON: Chest x-ray, 04/01/2018 FINDINGS: Lines and tubes: None Heart size normal. No focal pulmonary opacity, pleural effusion or pneumothorax. Previously noted retrocardiac haziness is no longer apparent. Upper abdomen unremarkable. No acute bony abnormality. IMPRESSION: No evidence for acute disease. Signed by: Dr. Franky Harrison M.D. on 04/30/2018 1:05 PM
--- NOTE | 2018-04-30 19:56 | Diagnostic Imaging Report ---
Bone Scan, delayed phase INDICATION: C61: Malignant neoplasm of prostate COMPARISON: CT abdo/pelvis 04/30/2018 REPORT: Approximately 3 hours following intravenous administration of 26 mCi of Tc-99m MDP, delayed total body images in the anterior and posterior projections and selected spot images were obtained. Distribution of tracer activity is unremarkable throughout the skeletal system. No abnormal accumulation of tracer is seen in the soft tissues. Accumulation of tracer in prominent bilateral renal pelvis is noted although obstruction is not suspected. IMPRESSION: No scan evidence of metastatic bone disease. Signed by: Dr. Debby Melton M.D. on 04/30/2018 7:53 PM
== END ==
LOC: NM 09:42
PROVIDERS: ATTEND Urology
DX: C61 Malignant neoplasm of prostate (principal)
CPT/HCPCS: 36415; 71046; 74177; 78306; 82565; 84520; A9503; Q9967

== ENCOUNTER → 2018-11-27 | Day surgery (SDC) | payer MEDICARE ==
[~2018-11-27] MED LIST changes: +B&O 60MG R/S 60 MG SUPP PR ONE; +CEFTRIAXONE SOD 1 GM/NS 50 ML 50 ML IV ONE; +COLACE100 MG PO; +DEXAMETHASONE SOD PHOS INJ 4 MG/ML VIAL ONE; +DITROPAN XL5 MG PO; +EPHEDRINE SULFATE INJ 50 MG/10 ML SYR ONE; +FENTANYL CITRATE/PF 100MCG/2 ML INJ ONE; +IOPAMIDOL 300MG/ML 50ML INFUS..BTL IV ONE; -IOPAMIDOL 370 MG/ML 200 ML INFUS..BTL INJ ONE; +LIDOCAINE HCL 2% LOCAL INJ 5 ML SDV VIAL INJ ONE; +MIDAZOLAM HCL 2 MG/2 ML VIAL ONE; +ONDANSETRON HCL INJ 2MG/ML 2ML 2 MG/ML VIAL ONE; +PROPOFOL IV EMULSION 10 MG/ML 20 ML VIAL ONE; +PYRIDIUM200 MG; +SEVOFLURANE INHAL SOLN 250 ML PEN BTL ONE; -SODIUM CHLORIDE 0.9% 50ML 50 ML ONE; +TYLENOL # 31 EA PO
--- OUTSIDE RECORDS SUMMARY | 2018-11-27 08:39 | XMS REPORT ---
Author [facility] Address Unknown Phone Unavailable Care Team Providers Care Grocery Checker Name Role Phone RICCI RILEY Unavailable Unavailable Problems This patient has no known problems. Allergies, Adverse Reactions, Alerts This patient has no known allergies or adverse reactions. Medications This patient has no known medications. Results Test Description Test Time Test Comments Text Results Atomic Results Result Comments BONE and/or JOINT WHOLE BODY 2018-04-30 19:49:00 [place] [address] Patient Name: FRAN VILLEGAS MR #: [id number] : 1950 Age/Sex: 68/M Req #: [id number] Adm Physician: Ordered by: RICCI RILEY MD Report #: [id number] Location: [place] Room/Bed: Procedure: [id number] NM/BONE and/or JOINT WHOLE BODY Exam Date: 04/30/18 Exam Time: 1000 REPORT STATUS: Signed Bone Scan, delayed phase INDICATION: C61: Malignant neoplasm of prostate COMPARISON: CT abdo/pelvis 04/30/2018 REPORT: Approximately 3 hours following intravenous administration of 26 mCi of Tc-99m MDP, delayed total body images in the anterior and posterior projections and selected spot images were obtained. Distribution of tracer activity is unremarkable throughout the skeletal system. No abnormal accumulation of tracer is seen in the soft tissues. Accumulation of tracer in prominent bilateral renal pelvis is noted although obstruction is not suspected. IMPRESSION: No scan evidence of metastatic bone disease. Signed by: Dr. Jaylen Melton M.D. on 04/30/2018 7:53 PM Dictated By: JAYLEN MELTON MD 52 Transcribed By: LEXA on 04/30/181952 COPY TO: RICCI RILEY MD CHEST 2 VIEWS 2018-04-30 13:02:00 [place] [address] Patient Name: FRAN VILLEGAS MR #: [id number] : 1950 Age/Sex: 68/M Req #: [id number] Adm Physician: Ordered by: RICCI RILEY MD Report #: [id number] Location: [place] Room/Bed: Procedure: [id number] DX/CHEST 2 VIEWS Exam Date: 04/30/18 Exam Time: 1020 REPORT STATUS: Signed EXAM: CHEST 2 VIEWS DATE: 04/30/2018 9:53 AM NASREEN CATION: Prostate cancer COMPARISON: Chest x-ray, 04/01/2018 FINDINGS: Lines and tubes: None Heart size normal. No focal pulmonary opacity, pleural effusion or pneumothorax. Previously noted retrocardiac haziness is no longer apparent. Upper abdomen unremarkable. No acute bony abnormality. IMPRESSION: No evidence for acute disease. Signed by: Dr. Ann Parsons M.D. on 04/30/2018 1:05 PM Dictated By: ANN PARSONS MD 04 Transcribed By: LEXA on 04/30/181304 COPY TO: RICCI RILEY MD CT ABDOMEN/PELVIS W 2018-04-30 11:48:00 [facility] [address] [place] [address] Patient Name: FRAN VILLEGAS MR #: [id number] : 1950 Age/Sex: 68/M Req #: [id number] Adm Physician: Ordered by: RICCI RILEY MD Report #: [id number] Location: [place] Room/Bed: Procedure: [id number] CT/CT ABDOMEN/PELVIS W Exam Date: 04/30/18 Exam Time: 1100 REPORT STATUS: Signed EXAM: CT Abdomen and Pelvis WITH contrast INDICA TION: Prostate cancer. COMPARISON: None. TECHNIQUE: Abdomen and pelvis were scanned utilizing a multidetector helical scanner from the lung base to the pubic symphysis after administration of IV contrast. Coronal and sagittal reformations were obtained. Routine protocol was performed. Scan was performed when during portal venous phase. IV CONTRAST: 100 cc of Isovue 370. ORAL CONTRAST: Water COMPLICATIONS: None RADIATION DOSE: Total DLP: 457 mGy*cm CTDIvol has been reviewed. It is below the limits set by the Radiation Protocol Committee (RPC). FINDINGS: LINES and TUBES: None. LOWER THORAX: Patchy dependent atelectasis. There is a calcified granuloma in the right lower lobe. Extensive coronary atherosclerosis. There are coronary stents. HEPATOBILIARY: No evidence of solid mass. Multiple calcified granulomas. No biliary ductal dilation. GALLBLADDER: Decompressed with numerous gallstones. No surrounding inflammatory changes. SPLEEN: No splenomegaly. Calcified granulomas. Subcentimeter splenic hypodensity is too small to characterize, but likely represents a cyst. PANCREAS: No focal masses or ductal dilatation. ADRENALS: No adrenal nodules KIDNEYS/URETERS: Kidneys enhance symmetrically. No evidence of solid mass. There is bilateral pelviectasis, left greater than ri ght without evidence of caliectasis. There is an 8 mm left upper pole renal stone. GI TRACT: No evidence of bowel obstruction. There is decompression with mild wall thickening within the ascending and transverse colon. Normal appendix. PELVIC ORGANS/BLADDER: Prostatomegaly measuring 5.4 cm. LYMPH NODES: No lymphadenopathy. VESSELS: Unremarkable. PERITONEUM / RETROPERITONEUM: No free air or fluid. BONES AND SOFT TISSUES: No acute osseous abnormality. No suspicious lytic or blastic lesions. CONCLUSION: No specific evidence of metastatic disease within the abdomen or pelvis. Prostatomegaly. Nonobstructing left upper pole renal stone measuring 8 mm. Cholelithiasis. Signed by: Dr. Clint Munoz MD on 04/30/2018 11:59 AM Dictated By: CLINT MUNOZ MD 115 Transcribed By: LEXA on 04/30/18 1159 COPY TO: RICCI RILEY MD CHEST 2 VIEWS 2018-04-01 10:06:00 [place] [address] Patient Name: FRAN VILLEGAS MR #: [id number] : 1950 Age/Sex: 68/M Req #: [id number] Adm Physician: Ordered by: RICCI RILEY MD Report #: [id number] Location: OR Room/Bed: Procedure: [id number] DX/CHEST 2 VIEWS Exam Date: 04/01/18 Exam Time: 939 REPORT STATUS: Signed EXAMINATION: CHEST 2 VIEWS INDICATION: PRE -OP PROSTATE BIOPSY [id number] 1 COMPARISON: None FINDINGS: PA and lateral views TUBES and LINES: None. LUNGS: Low lung volumes. Retrocardiac hazy opacification. PLEURA: No pleural effusion or pneumothorax. HEART AND MEDIASTINUM: The cardiac silhouette is borderline enlarged. Median sternotomy wires and mediastinal surgical clips. BONES AND SOFT TISSUES: No acute osseous lesion. Soft tissues are unremarkable. UPPER ABDOMEN: No free air under the diaphragm. IMPRESSION: Retrocardiac hazy opacification, probably atelectasis. Underlying infiltrate cannot be excluded in the appropriate clinical setting. Signed by: Dr. Shukri Jacobson MD on 04/01/2018 10:07 AM Dictated By: SHUKRI JACOBSON MD 1007 Transcribed By: LEXA on 04/01/18 1007 COPY TO: RICCI RILEY MD
--- NOTE | 2018-11-27 09:41 | Diagnostic Imaging Report ---
Exam: KUB - 2 views Indication: Preoperative Comparison: CT abdomen and pelvis of 04/30/2018 Findings: 11 mm left upper pole renal calculus, likely slightly increased in size compared to the CT of 04/30/2018 allowing for differences in technique. No other radiographically apparent renal calculi. Nonobstructive bowel gas pattern. Mild degenerative changes of the visualized spine and both hip joints. Atherosclerotic vascular calcifications. Impression: 11mm left upper pole renal calculus, likely slightly increased in size compared to 04/30/2018. Signed by: Trudy Byrne MD on 11/27/2018 9:37 AM
[2018-11-27 11:50] VITALS: BP 137/62
--- NOTE | 2019-01-30 18:50 | Operative Report ---
DATE OF PROCEDURE: 11/27/2018 SURGEON: Dawson Smith MD PREOPERATIVE DIAGNOSES: 1. Nephrolithiasis. 2. Obstructive BPH. POSTOPERATIVE DIAGNOSES: 1. Nephrolithiasis. 2. Obstructive BPH. OPERATIONS PERFORMED: Note, these procedures are no way related to the patient's prior diagnosis of elevated PSA and prostate cancer, is unrelated to those diagnoses and was planned to be performed importantly. 1. Left-sided extracorporeal shockwave lithotripsy (separate staged procedure performed for nephrolithiasis). 2. Cystourethroscopy with bilateral ureteral catheterization and retrograde ureteropyelography (separate staged procedure performed to evaluate the urinary tract in light of the obstructive BPH). 3. Interpretation of retrograde ureteropyelography. 4. Supervision of fluoroscopy, no radiologist present. ANESTHESIA: General. COMPLICATIONS: None. CLINICAL SUMMARY: Eddie Mcdaniel is a 68-year-old man with nephrolithiasis as well as BPH. He is brought for the above procedures. He is aware of the risks of bleeding, infection, injury to adjacent structures, and need for additional procedures and elected to proceed. OPERATIVE PROCEDURE IN DETAIL: Informed consent was verified. Eddie Mcdaniel was properly identified, taken to the operating room, placed on the lithotripsy table in supine position. Anesthesia was uneventfully begun. The patient's left-sided 8 mm upper calyceal stone was localized with biplanar fluoroscopy. A total of 3000 shocks were delivered with excellent fragmentation noted. The patient was then carefully gently repositioned into dorsal lithotomy position with all pressure points well padded. His genitalia were prepared and draped in the usual sterile fashion. The cystoscope sheath with the visual obturator in place was atraumatically inserted into the patient's urethra, it was guided down to the unremarkable distal urethra through normal sphincteric region through the prostate bed that was significant for trilobar prostatic hypertrophy with small median lobe and kissing lateral lobes. Panendoscopy of the bladder revealed grade 2 trabeculations, but no tumors, no stones, and no diverticula, normally positioned configured ureteral orifices were identified. An 8-Arabic catheter was used to cannulate each ureter and retrograde ureteropyelogram was performed. Interpretation of retrograde ureteropyelography, contrast was instilled in retrograde fashion bilaterally. The right hand side was unremarkable. There were no tumors, no stones, and no diverticula. Unobstructed drainage was observed fluoroscopically. The left hand side exhibited a few filling defect in the upper pole region where that is consistent with stone fragments as well as blood clots. There was unobstructed drainage observed bilaterally fluoroscopically and there were no suspicious mucosal lesions. The patient's bladder was drained. Cystoscope was withdrawn. The belladonna and opium suppository were placed revealing a 40 g prostate that is smooth, nonfluctuant without any nodules. The patient was then uneventfully reversed from anesthesia and taken to the recovery room in stable condition. There were no complications at the end of the procedure. He tolerated the procedure well. Plans will be to proceed with his followup and management for his prostate cancer and we also plan on following up on the patient's stones later. Dawson Smith MD [place]/MODL /[id number] cc: Festus Ornelas MD
== END | disposition home or self-care (01) ==
LOC: OR 08:36
PROVIDERS: ATTEND Urology
DX: N20.0 Calculus of kidney (principal); C61 Malignant neoplasm of prostate; N40.1 Benign prostatic hyperplasia with lower urinary tract symptoms; N13.8 Other obstructive and reflux uropathy; N32.89 Other specified disorders of bladder; I25.810 Atherosclerosis of coronary artery bypass graft(s) without angina pectoris; E11.9 Type 2 diabetes mellitus without complications; I10 Essential (primary) hypertension; Z01.810 Encounter for preprocedural cardiovascular examination; Z79.4 Long term (current) use of insulin; Z79.84 Long term (current) use of oral hypoglycemic drugs; Z79.02 Long term (current) use of antithrombotics/antiplatelets; Z79.82 Long term (current) use of aspirin; Z95.1 Presence of aortocoronary bypass graft; Z95.5 Presence of coronary angioplasty implant and graft
CPT/HCPCS: 50590; 52005; 74018; 93005; C1758; J0696; J1100; J2001; J2250; J2405; J2704; J3010; Q9967

== ENCOUNTER 2018-12-02 00:49 | Observation (INO) | payer MEDICARE, OTHER ==
[~2018-12-02] VITALS: Ht 175.3 cm; Wt 86.2 kg
[2018-12-02] VITALS (9 sets, daily range): BP systolic 144–177; BP diastolic 65–92
[~2018-12-02 00:49] MED LIST changes: -B&O 60MG R/S 60 MG SUPP PR ONE; -CEFTRIAXONE SOD 1 GM/NS 50 ML 50 ML IV ONE; -COLACE100 MG PO; -DEXAMETHASONE SOD PHOS INJ 4 MG/ML VIAL ONE; -DITROPAN XL5 MG PO; -EPHEDRINE SULFATE INJ 50 MG/10 ML SYR ONE; -FENTANYL CITRATE/PF 100MCG/2 ML INJ ONE; -IOPAMIDOL 300MG/ML 50ML INFUS..BTL IV ONE; -LIDOCAINE HCL 2% LOCAL INJ 5 ML SDV VIAL INJ ONE; -MIDAZOLAM HCL 2 MG/2 ML VIAL ONE; -ONDANSETRON HCL INJ 2MG/ML 2ML 2 MG/ML VIAL ONE; -PROPOFOL IV EMULSION 10 MG/ML 20 ML VIAL ONE; -PYRIDIUM200 MG; -SEVOFLURANE INHAL SOLN 250 ML PEN BTL ONE; -TYLENOL # 31 EA PO
[2018-12-02] MEDS: MORPHINE SULFATE 2 MG/ML SYR 1ML IV PRN ×5 (03:20→23:24)
[2018-12-02] MEDS: SODIUM CHLORIDE 0.9% 1000ML 1,000 ML IV SCH ×2 (03:20→12:15)
[2018-12-02 05:15] LABS: BASOPHILS % 0.2 % (0.0-1.0); HEMATOCRIT 31.1 % (38.2-49.6); HEMOGLOBIN 10.6 g/dL (14.0-18.0); LYMPHOCYTES # (AUTO) 0.8 (1.0-3.2); LYMPHOCYTES % 8.1 % (18.0-39.1); MEAN CORPUSCULAR HEMOGLOBIN 30.5 pg (28-32); MEAN CORPUSCULAR HGB CONC 34.1 g/dL (31-35); MEAN CORPUSCULAR VOLUME 89.4 fL (81-99); MONOCYTES # (AUTO) 0.8 (0.2-0.8); MONOCYTES % 7.9 % (4.4-11.3); NEUTROPHILS # (AUTO) 8.6 (2.1-6.9); NEUTROPHILS % 83.2 % (38.7-80.0); PLATELET COUNT 109 x10e3/uL (140-360); RED BLOOD COUNT 3.48 x10e6/uL (4.3-5.7); RED CELL DISTRIBUTION WIDTH 13.7 % (11.7-14.4)
[2018-12-02 05:49] LABS: ALBUMIN 3.2 g/dL (3.5-5.0); ALBUMIN/GLOBULIN RATIO 0.9 (0.8-2.0); ANION GAP 17.2 mmol/L (8-16); CALCIUM 9.4 mg/dL (8.4-10.2); CREATININE, SERUM 1.74 mg/dL (0.72-1.25); POTASSIUM 5.2 mmol/L (3.5-5.1)
--- NOTE | 2018-12-02 06:50 | NUR ---
The patient is sleeping on his left side, in no apparent discomfort. Respirations are even and unlabored. The patient complained of pain once through the night which was relieved with morphine. The patient has been NPO and was instructed to not eat anything until seen/instructed by the doctor. I spoke with the patients daughter this morning at around 0620. I wrote her contact information in the SBAR sheet and on the board. Call light within reach, bed low and wheels are locked.
--- NOTE | 2018-12-02 11:53 | NUR ---
Pt off to OR at this time, proper documentation in chart. Pt a&O x3, resp WNL. IV patent to L wrist.
[2018-12-02] MEDS ORDERED: IOPAMIDOL 300MG/ML 50ML INFUS..BTL IV ONE (12:36)
[2018-12-02] MEDS ORDERED: B&O 60MG R/S 60 MG SUPP PR ONE (12:37)
[2018-12-02] MEDS ORDERED: DEXTROSE 50% SYRINGE 50 ML IV PRN (13:15)
[2018-12-02] MEDS ORDERED: B&O 60MG R/S 60 MG SUPP PR PRN (13:30)
[2018-12-02] MEDS ORDERED: SOD POLYSTYRENE SULFONATE SUSP 15 GM/60 ML BTL PO ONE (14:00)
[2018-12-02] MEDS ORDERED: DEXAMETHASONE SOD PHOS INJ 4 MG/ML VIAL ONE (15:30)
[2018-12-02] MEDS ORDERED: LIDOCAINE HCL 2% LOCAL INJ 5 ML SDV VIAL INJ ONE (15:30)
[2018-12-02] MEDS ORDERED: SEVOFLURANE INHAL SOLN 250 ML PEN BTL ONE (15:30)
[2018-12-02] MEDS ORDERED: PROPOFOL IV EMULSION 10 MG/ML 20 ML VIAL ONE (15:30)
[2018-12-02] MEDS ORDERED: ONDANSETRON HCL INJ 2MG/ML 2ML 2 MG/ML VIAL ONE (15:30)
[2018-12-02] MEDS ORDERED: FENTANYL CITRATE/PF 100MCG/2 ML INJ ONE (15:59)
[2018-12-02] MEDS ORDERED: MIDAZOLAM HCL 2 MG/2 ML VIAL ONE (15:59)
[2018-12-02] MEDS: INSULIN LISPRO 100 UNIT/1 ML 3ML VIAL SQ SCH ×2 (16:30→20:56)
[2018-12-02] MEDS: PHENAZOPYRIDINE HCL 100 MG TAB PO SCH (17:22)
[2018-12-02] MEDS: METOPROLOL TARTRATE 50 MG TAB PO SCH (17:22)
--- NOTE | 2018-12-02 19:40 | NUR ---
Received change of shift report from AM nurse. Walking rounds completed.
[2018-12-02] MEDS: INSULIN GLARGINE 100 UNITS/ML VIAL SQ SCH (20:56)
[2018-12-02] MEDS ORDERED: SIMVASTATIN 40 MG TAB PO SCH (21:00)
[2018-12-03] VITALS: BP 157/87
[2018-12-03] MEDS: MORPHINE SULFATE 2 MG/ML SYR 1ML IV PRN ×2 (03:30→08:13)
--- NOTE | 2018-12-03 03:55 | History and Physical ---
CHIEF COMPLAINT: Abdominal pain, nausea. HISTORY OF PRESENT ILLNESS: This is a 68-year-old male with past medical history of coronary artery disease, hypertension, diabetes, and hyperlipidemia, was in usual state until the patient went to some emergency room in [place], found to have a left ureteral stone, so the patient was transferred to [facility] originally under Dr. Festus Ornelas and he called me this morning to transfer to my service. I am the primary care doctor. The patient found to have a left ureter stone with obstructive uropathy with abnormal kidney function test. No fever. No diarrhea. No constipation. No seizures. No focal weakness. ALLERGIES: NO KNOWN DRUG ALLERGIES. PAST MEDICAL HISTORY: 1. Hypertension. 2. Diabetes mellitus type 2. 3. Hyperlipidemia. 4. Coronary artery disease. PAST SURGICAL HISTORY: History of coronary artery bypass graft and stent in coronary. FAMILY HISTORY: Father diagnosed with diabetes. SOCIAL HISTORY: The patient is , lives with his . Denies smoking. Denies alcohol use. MEDICATION: Restarted. REVIEW OF SYSTEMS: CONSTITUTIONAL: Denies fatigue and weakness. HEENT: No diplopia. No blurring of vision. CARDIOPULMONARY: No chest pain. No shortness of breath. No cough. ALIMENTARY SYSTEM: Has some nausea and abdominal pain. No vomiting. GENITOURINARY SYSTEM: No dysuria. No hematuria. MUSCULOSKELETAL: No joint pain. CENTRAL NERVOUS SYSTEM: No focal weakness. PHYSICAL EXAMINATION: GENERAL: 68-year-old male, who is alert and oriented x3, in no gross distress. VITAL SIGNS: Temperature 98.2, pulse 80, respiratory rate 18, and blood pressure 130/84. HEENT: Head atraumatic and normocephalic. Pupils bilaterally equally reactive to light. Extraocular muscles intact. NECK: Supple. No JVD. No carotid bruit. LUNGS: Clear to auscultation bilaterally. No added sounds. HEART: S1 and S2. Regular rate and rhythm. No S3, S4, or murmur. ABDOMEN: Soft. Has some left-sided mild tenderness. No guarding. No rigidity. No CVA tenderness. EXTREMITIES: No edema. Peripheral pulses +1. LACE ROLLER: Grossly nonfocal. ASSESSMENT: 1. Ureteral stone with left obstructive uropathy. 2. Acute renal failure secondary to #1. 3. Diabetes mellitus type 2. 4. Hypertension. 5. Hyperlipidemia. 6. Coronary artery disease. PLAN: 1. Admit the patient to medical floor. IV fluid normal saline at 100 mL/h. Urology consult with Dr. Smith. Dr. Smith will put a stent to the left ureter. 2. Sliding scale blood sugar before meals and at bedtime. Continue all home medicine. IV fluid normal saline at 70 mL/h. CBC and CMP in the morning. Case discussed with the patient and nursing staff. Condition and prognosis explained to family. MD ANDREW Sanches/MARTINE /[id number]
[2018-12-03 04:00] VITALS: BP 158/92
[2018-12-03 05:33] LABS: BASOPHILS % 0.4 % (0.0-1.0); EOSINOPHILS # (AUTO) 0.1 (0.0-0.4); EOSINOPHILS % 0.9 % (0.0-6.0); HEMATOCRIT 33.4 % (38.2-49.6); HEMOGLOBIN 11.1 g/dL (14.0-18.0); LYMPHOCYTES # (AUTO) 1.2 (1.0-3.2); LYMPHOCYTES % 14.3 % (18.0-39.1); MEAN CORPUSCULAR HEMOGLOBIN 30.6 pg (28-32); MEAN CORPUSCULAR HGB CONC 33.2 g/dL (31-35); MONOCYTES # (AUTO) 0.7 (0.2-0.8); NEUTROPHILS # (AUTO) 6.4 (2.1-6.9); PLATELET COUNT 95 x10e3/uL (140-360); RED BLOOD COUNT 3.63 x10e6/uL (4.3-5.7); RED CELL DISTRIBUTION WIDTH 13.7 % (11.7-14.4)
[2018-12-03 05:54] LABS: ANION GAP 14.3 mmol/L (8-16); CALCIUM 9.6 mg/dL (8.4-10.2); CREATININE, SERUM 1.46 mg/dL (0.72-1.25); POTASSIUM 5.3 mmol/L (3.5-5.1)
[2018-12-03 07:15] VITALS: BP 157/76
[2018-12-03] MEDS: INSULIN LISPRO 100 UNIT/1 ML 3ML VIAL SQ SCH (07:25)
[2018-12-03] MEDS: SODIUM CHLORIDE 0.9% 1000ML 1,000 ML IV SCH ×2 (08:16→08:26)
[2018-12-03] MEDS: PHENAZOPYRIDINE HCL 100 MG TAB PO SCH (08:16)
[2018-12-03] MEDS: METOPROLOL TARTRATE 50 MG TAB PO SCH (08:16)
[2018-12-03] MEDS: INSULIN GLARGINE 100 UNITS/ML VIAL SQ SCH (08:16)
--- NOTE | 2018-12-03 08:16 | NUR ---
Pt stated does not want to recieve any form on insulin when BS is less than 250. Pt stated that his normal values are between 175-250.
[2018-12-03] MEDS ORDERED: SOD POLYSTYRENE SULFONATE SUSP 15 GM/60 ML BTL PR ONE (08:45)
[2018-12-03] MEDS ORDERED: TAMSULOSIN HCL 0.4 MG CAP PO SCH (09:00)
--- NOTE | 2018-12-03 10:01 | NUR ---
PT NOT IN ROOM ALREADY DISCHARGED
[2018-12-06] MEDS ORDERED: PYRIDIUM200 MG (14:51)
[2018-12-06] MEDS ORDERED: DITROPAN XL5 MG PO (14:51)
[2018-12-21] MEDS ORDERED: METFORMIN HCL500 MG PO (13:14)
[2018-12-25] MEDS ORDERED: COLACE100 MG PO (15:03)
[2018-12-25] MEDS ORDERED: TYLENOL # 31 EA PO (15:03)
--- NOTE | 2019-01-11 06:27 | Discharge Summary ---
CHIEF COMPLAINT: Abdominal pain, nausea. FINAL DIAGNOSES: Altered mental status, improved, left hydronephrosis, obstructive uropathy status post stent placement, hypertension, diabetes type 2, coronary artery disease. DISPOSITION: Home. HOSPITAL COURSE: A 62-year-old male with history of coronary artery disease, hypertension, diabetes, hyperlipidemia. [facility] went to the emergency room at [place], found to have left ureteral stone. The patient was transferred here, admitted originally under my that I take the initiative, further evaluation and care was conducted in the ER an admission was made with assessment of ureteral stone, left obstructive uropathy, acute renal failure secondary to number one diabetes mellitus type 2, hypertension, hyperlipidemia, will begin care in the med floor. We will request continued follow Dr. Smith monitor the patient's blood sugars. Home medications will continue. From the ER the patient was placed in IMCU was on n.p.o. status original was being reviewed by Dr. Smith at that location and there was concern about urethrolithiasis, acute renal failure as well as hyperkalemia hydronephrosis. He underwent procedure by Dr. Smith with stent placement. Postprocedure, was doing well was still being maintained n.p.o., was on IV fluids. Continue medications for pain. His lispro coverage was continuing. He is feeling better. Still has not passed the stone where the patient can be released home for outpatient care. The patient was able to be discharged on 12/03/2018 in stable condition. IVs will be DC. Metformin will be on hold until further notice. IMAGING: Retrograde pyelogram. Cultures, urine negative. LABORATORY STUDIES: Shows CBCs a normal white cell count, initial H and H was 10.6 and 31.1. Followup H and H were 11.1 and 33.4. Chemistries reveal initial panel were showing potassium elevated at 5.2, kidney functions, BUN 40, creatinine 1.74. Initial glucose 277, followup sugars were watched closely. Repeat studies were as high as 291. Hemoglobin A1c was as high as 7.5%. Final blood sugar 245, final potassium 5.3. As mentioned, the patient was cleared for discharge and was released home. He will be maintained on his ADA diet, was discharged with the stent in place. Activity level as directed by myself as well as by Dr. Smith. Followup care will be returning back to Dr. Smith's office within 2-3 weeks or sooner if the patient has any difficulties with the stent. Request is for him to follow up with me in my office in next 3-5 days. CURRENT MEDICATIONS: He will be continuing on Tylenol No. 3 a 300 mg tablet one p.o. q.4 hours p.r.n. for pain, aspirin 81 mg p.o. daily, clopidogrel 75 mg daily, Colace 100 mg p.o. b.i.d., glipizide 10 mg p.o. b.i.d., Levemir 10 units subcu b.i.d., Humalog 5 units subcu t.i.d. a.c. following sliding scale, metformin 1000 mg p.o. b.i.d., metoprolol tartrate 50 mg p.o. b.i.d., simvastatin 40 mg p.o. 2100 hours, Flomax 0.4 mg p.o. daily. MD HENRIETTA Angel/MODL /[id number]
--- NOTE | 2019-01-30 19:35 | Operative Report ---
DATE OF PROCEDURE: 12/02/2018 SURGEON: Dawson Smith MD PREOPERATIVE DIAGNOSES: 1. Left hydronephrosis due to stone. 2. Acute renal failure. 3. Left obstructing ureterolithiasis. POSTOPERATIVE DIAGNOSES: 1. Left hydronephrosis due to stone. 2. Acute renal failure. 3. Left obstructing ureterolithiasis. OPERATIONS PERFORMED: Cystourethroscopy with bilateral ureteral catheterization and retrograde ureteropyelography (operation performed, of note, these were all staged procedures as part of multi-staged and multi-step process in managing the patient's urolithiasis and does not related directly to prior procedures). OPERATIVE PROCEDURE IN DETAIL: Informed consent was verified. Eddie Mcdaniel was properly identified, taken to the operating room, and placed on the cystoscopy table in supine position and anesthesia was uneventfully begun. The patient was then carefully gently repositioned in dorsal lithotomy position with all pressure points well padded. His genitalia were prepared and draped in usual sterile fashion. The cystoscope sheath with the visual obturator in place was atraumatically inserted the patient's urethra, it was guided down to the unremarkable distal urethra through the normal sphincteric region into the prostate bed, which was significant for visually obstructing BPH with small median lobe. The bladder exhibited grade 2 trabeculations, but no tumors, no stones. Ureteral catheter was used to cannulate each ureter and retrograde ureteral pyelograms were performed. The ureteral catheter was then brought up into the left ureter and guided with the aid of a wire to the level of the obstruction. We gently tapped on the stone, dislodged, and manipulated it back into the kidney. We could see it then has a filling defect within the intrarenal collecting system. With cystoscope and fluoroscopic guidance, a left-sided indwelling ureteral stent was then placed. It was coiled in the patient's kidney as well as the patient's bladder. The retaining suture was cut short. Interpretation of retrograde ureteropyelography, contrast was instilled in retrograde fashion bilaterally. The right side was unremarkable. There were no tumors, no stones, no diverticula. Unobstructed drainage was observed fluoroscopically. Left hand side exhibited hydroureteronephrosis down to the level of the obstructing stone, the correlate that correspond on CT. The stone was then seen as a filling defect that floated into the left renal pelvis. There was a cluster of stone fragments in the left upper pole calyx following lithotripsy and there was of course a stone in the proximal ureter that we manipulated into the kidney. The stent was coiled in the patient's kidney as well as the patient's bladder at the end of the case. The patient's bladder was drained. Cystoscope was withdrawn. Belladonna and opium suppository were placed revealing a 40 g prostate that is smooth, nonfluctuant, without any nodules. The patient was then uneventfully reversed from anesthesia and taken to recovery room in stable condition. Explicit postop instructions were given and we will plan on following the patient up during this hospitalization as well as on a long-term basis as far as managing his other urological problems. Eventually, we will plan to return the patient to the operating room to remove his stent, perform ureteroscopy, and hopefully render the patient stent free and stone free. MD LASHONDA Polanco/MARTINE /[id number]
== END 2018-12-03 09:50 | disposition home or self-care (01) ==
LOC: IMCU 00:54
PROVIDERS: ADMIT Internal Medicine; ATTEND Internal Medicine
DX: N13.2 Hydronephrosis with renal and ureteral calculous obstruction (principal); I10 Essential (primary) hypertension; I25.10 Atherosclerotic heart disease of native coronary artery without angina pectoris; Z95.1 Presence of aortocoronary bypass graft; E11.9 Type 2 diabetes mellitus without complications; E78.5 Hyperlipidemia, unspecified; Z95.5 Presence of coronary angioplasty implant and graft; Z83.3 Family history of diabetes mellitus; N17.9 Acute kidney failure, unspecified; R41.82 Altered mental status, unspecified
CPT/HCPCS: 36415; 74420; 80048; 80053; 82948; 83036; 85025; 87086; 93005; C1758; C2617; G0378; J1100; J1815; J2001; J2250; J2270; J2405; J3010; J7030

== ENCOUNTER → 2019-02-01 | Day surgery (SDC) | payer MEDICARE ==
[~2019-02-01] MED LIST changes: +ACETAMINOPHEN/CODEINE 300MG - 30MG TAB ONE; +B&O 60MG R/S 60 MG SUPP PR ONE; +CEFTRIAXONE SOD 1 GM/NS 50 ML 50 ML IV ONE; +COLACE100 MG PO; +DITROPAN XL5 MG PO; +EPHEDRINE SULFATE INJ 50 MG/10 ML SYR ONE; +FENTANYL CITRATE/PF 100MCG/2 ML INJ ONE; +INSULIN REGULAR, HUMAN 100 UNIT/1 ML 3ML VIAL ONE; +IOPAMIDOL 300MG/ML 50ML INFUS..BTL IV ONE; +LIDOCAINE HCL 2% JELLY 5 ML TUBE ONE; +LIDOCAINE HCL 2% LOCAL INJ 5 ML SDV VIAL INJ ONE; +MIDAZOLAM HCL 2 MG/2 ML VIAL ONE; +ONDANSETRON HCL INJ 2MG/ML 2ML 2 MG/ML VIAL ONE; +PROPOFOL IV EMULSION 10 MG/ML 20 ML VIAL ONE; +PYRIDIUM200 MG; +SEVOFLURANE INHAL SOLN 250 ML PEN BTL ONE; +TYLENOL # 31 EA PO
--- NOTE | 2019-02-01 09:11 | Diagnostic Imaging Report ---
Exam: KUB - 2 views Indication: Preoperative Comparison: KUB of 12/22/2018 Findings: Left internal nephroureteral stent in place. Unchanged appearance of cluster of renal calculi on the left lower pole measuring up to 9 mm. No radiographically apparent right renal calculi. Surgical clips in the bilateral pelvis. Phlebolith in the right pelvis. Nonobstructive bowel gas pattern. No free air. Mild degenerative changes of both hip joints. Mild degenerative changes of the utilized spine. Sternotomy wires partially visualized. Impression: Unchanged left renal calculi. Left nephroureteral stent in place. Signed by: Trudy Byrne MD on 02/01/2019 9:07 AM
[2019-02-01 09:45] VITALS: BP 160/81
--- NOTE | 2019-02-02 10:51 | Operative Report ---
DATE OF PROCEDURE: 02/01/2019 SURGEON: Dawson Smith MD PREOPERATIVE DIAGNOSIS: Left nephrolithiasis. POSTOPERATIVE DIAGNOSIS: Left nephrolithiasis. OPERATION PERFORMED: Note these were all staged procedures as part of multi-staged and multi-step process in managing the patient's extensive nephrolithiasis. 1. Cystourethroscopy with complicated removal of left indwelling ureteral stent (separate procedure performed for the diagnosis of stent done with separate scope). 2. Extensive, complicated and lengthy left ureteropyeloscopy with holmium laser lithotripsy, stone manipulation and extraction and placement of stent (separate procedure performed for the numerous left nephrolithiasis). 3. Radiological services with supervision and interpretation of ureteroscopy. 4. Interpretation of retrograde ureteropyelography. 5. Supervision of fluoroscopy, no radiologist present. ANESTHESIA: General. COMPLICATIONS: None. CLINICAL SUMMARY: Eddie Mcdaniel is a complicated 68-year-old man. He has prostate cancer that is high-grade. He underwent pelvic lymphadenectomy and was found to have left nephrolithiasis. He underwent ESWL following this, the patient had obstructing ureterolithiasis, required emergent ureteral stenting. He is brought to the operating room today in hopes of rendering the patient stone free. He is aware of the risks of bleeding, infection, injury to adjacent structures, need for additional procedures and elected to proceed. OPERATIVE PROCEDURE IN DETAIL: Informed consent was verified. Eddie Mcdaniel was properly identified, taken to the operating room, placed on the cystoscopy table in supine position. Anesthesia was uneventfully begun. The patient was then carefully gently repositioned in dorsal lithotomy position with all pressure points well padded. His genitalia were prepared and draped in usual sterile fashion. The cystoscope sheath with visual obturator in place was atraumatically inserted into the patient's urethra and was guided unremarkable. Distal urethra through the prostate bed, which was significant for BPH and into the patient's bladder where grade 2 trabeculations were noted. The stent was noted to be emerging from the left ureteral orifice. A guidewire was then placed alongside the stent and guided to the level of the patient's kidney. The stent was then grasped, completely removed and discarded. Semi-rigid ureteroscope was then placed alongside of the guidewire into the distal ureter, contrast was injected. No stones were identified. A secondary wire was left in place. Flexible ureteroscope was then brought up over the guidewire and guided to the level of the patient's kidney. Panendoscopy revealed two calices with at least half a dozen stones in each one of them, both were in the lower calyceal complex. The remaining of the kidney revealed Darnell's plaques, but no additional stones. A flexible ureteroscopy sheath was then placed over the guidewire and guided to the level of the patient's proximal ureter fluoroscopically. We then performed numerous passes to remove over dozen stone fragments. We had two stone fragments that were too large to remove. Holmium laser lithotripsy was then performed to bring the stones down to smaller size and create smaller fragments. The stones were extremely hard and did not respond well nor quickly to the laser. Nevertheless, we did succeed in breaking the two larger stones. We then extracted all the remaining stone fragments only very fine sand remained within the kidney. There were no significantly sized stones that were visible upon careful panendoscopy. With cystoscopic and fluoroscopic guidance an indwelling ureteral stent was then placed, it was coiled into the kidney as well as the patient's bladder. The retaining suture was left long and taped to the patient's penis. The patient's bladder was drained. Cystoscope was withdrawn. Digital belladonna and opium suppositories were placed revealing a large prostate that is smooth, non-fluctuant without any nodules. The patient was uneventfully reversed from anesthesia and taken to recovery room in stable condition. There were no complications and the patient was then uneventfully reversed from anesthesia and taken to recovery room in stable condition. Explicit postop instructions were given. We will plan to return the patient to the office in several weeks to remove his stent via the suture that was left long. I instructed the patient's to explicitly not pull the string and to remind him not to pull the string. Dawson Smith MD [place]/MODL /[id number] cc: Linda Ornelas MD
== END | disposition home or self-care (01) ==
LOC: OR 05:25
PROVIDERS: ATTEND Urology
DX: N20.0 Calculus of kidney (principal); C61 Malignant neoplasm of prostate; Z46.6 Encounter for fitting and adjustment of urinary device; N40.0 Benign prostatic hyperplasia without lower urinary tract symptoms; N32.89 Other specified disorders of bladder; N28.89 Other specified disorders of kidney and ureter; I25.810 Atherosclerosis of coronary artery bypass graft(s) without angina pectoris; I10 Essential (primary) hypertension; E78.5 Hyperlipidemia, unspecified; E11.9 Type 2 diabetes mellitus without complications; I25.2 Old myocardial infarction; Z79.02 Long term (current) use of antithrombotics/antiplatelets; Z79.82 Long term (current) use of aspirin; Z79.84 Long term (current) use of oral hypoglycemic drugs; Z79.4 Long term (current) use of insulin; Z95.1 Presence of aortocoronary bypass graft; Z95.5 Presence of coronary angioplasty implant and graft
CPT/HCPCS: 36415; 52356; 74018; 74420; 82948; 88300; C1766; C2617; J0696; J1817; J2001 ×2; J2250; J2405; J2704; J3010; Q9967; C1769

== ENCOUNTER 2019-06-16 06:10 | Inpatient (IN) | payer MEDICARE, OTHER ==
[2019-06-11 08:47] LABS: BASOPHILS % 0.2 % (0.0-1.0); EOSINOPHILS # (AUTO) 0.1 (0.0-0.4); EOSINOPHILS % 2.3 % (0.0-6.0); HEMATOCRIT 33.1 % (38.2-49.6); LYMPHOCYTES # (AUTO) 1.3 (1.0-3.2); LYMPHOCYTES % 23.3 % (18.0-39.1); MEAN CORPUSCULAR HEMOGLOBIN 29.3 pg (28-32); MEAN CORPUSCULAR HGB CONC 33.2 g/dL (31-35); MONOCYTES # (AUTO) 0.4 (0.2-0.8); MONOCYTES % 7.9 % (4.4-11.3); NEUTROPHILS # (AUTO) 3.7 (2.1-6.9); NEUTROPHILS % 65.9 % (38.7-80.0); PLATELET COUNT 106 x10e3/uL (140-360); RED BLOOD COUNT 3.76 x10e6/uL (4.3-5.7); RED CELL DISTRIBUTION WIDTH 15.3 % (11.7-14.4)
[2019-06-11 09:05] LABS: ANION GAP 11.5 mmol/L (8-16); CALCIUM 9.6 mg/dL (8.4-10.2); CREATININE, SERUM 1.56 mg/dL (0.72-1.25); POTASSIUM 4.5 mmol/L (3.5-5.1)
--- NOTE | 2019-06-11 09:58 | Diagnostic Imaging Report ---
EXAMINATION: CHEST 2 VIEWS INDICATION: Pre-operative COMPARISON: Chest radiograph 12/03/2018 FINDINGS: LINES/TUBES:None LUNGS:The lungs are moderately inflated. No focal consolidation or pulmonary edema. PLEURA:No pleural effusion or pneumothorax. MEDIASTINUM:The cardiomediastinal silhouette appears unchanged in size and shape. BONES/SOFT TISSUES:No acute osseous injury. Sternotomy wires unchanged ABDOMEN:No free air under the diaphragm. IMPRESSION: No focal pneumonia or pulmonary edema. Signed by: Trudy Byrne MD on 06/11/2019 9:55 AM
[~2019-06-16] VITALS: Ht 175.3 cm; Wt 83.0 kg
[~2019-06-16 06:10] MED LIST changes: -ACETAMINOPHEN/CODEINE 300MG - 30MG TAB ONE; -B&O 60MG R/S 60 MG SUPP PR ONE; -CEFTRIAXONE SOD 1 GM/NS 50 ML 50 ML IV ONE; -EPHEDRINE SULFATE INJ 50 MG/10 ML SYR ONE; -FENTANYL CITRATE/PF 100MCG/2 ML INJ ONE; -INSULIN REGULAR, HUMAN 100 UNIT/1 ML 3ML VIAL ONE; -IOPAMIDOL 300MG/ML 50ML INFUS..BTL IV ONE; -LIDOCAINE HCL 2% JELLY 5 ML TUBE ONE; -LIDOCAINE HCL 2% LOCAL INJ 5 ML SDV VIAL INJ ONE; +LISINOPRIL10 MG PO; -MIDAZOLAM HCL 2 MG/2 ML VIAL ONE; +MULTI-VITAMIN1 EACH PO; +OMEGA 3 1,0001 EACH PO; -ONDANSETRON HCL INJ 2MG/ML 2ML 2 MG/ML VIAL ONE; +POTASSIUM CITRATE PO; -PROPOFOL IV EMULSION 10 MG/ML 20 ML VIAL ONE; -SEVOFLURANE INHAL SOLN 250 ML PEN BTL ONE
[2019-06-16] MEDS ORDERED: CEFTRIAXONE SOD 1 GM/NS 50 ML 50 ML IV ONE (06:51)
[2019-06-16] MEDS ORDERED: GENTAMICIN 80MG/NS 100 ML 200 ML IV ONE (06:51)
[2019-06-16] MEDS ORDERED: INSULIN REGULAR, HUMAN 100 UNIT/1 ML 3ML VIAL ONE (07:53)
[2019-06-16] MEDS ORDERED: IOPAMIDOL 300MG/ML 50ML INFUS..BTL IV ONE (08:13)
[2019-06-16] MEDS ORDERED: B&O 60MG R/S 60 MG SUPP PR ONE (08:13)
[2019-06-16] MEDS ORDERED: FENTANYL CITRATE/PF 100MCG/2 ML INJ ONE ×3 (09:56→19:29)
[2019-06-16] MEDS ORDERED: B&O 60MG R/S 60 MG SUPP PR PRN (10:00)
[2019-06-16] MEDS ORDERED: ONDANSETRON HCL INJ 2MG/ML 2ML 2 MG/ML VIAL IV PRN ×2 (10:00→18:15)
[2019-06-16] MEDS: SODIUM CHLORIDE 0.9% 1000ML 1,000 ML IV SCH ×2 (10:00→23:20)
[2019-06-16] MEDS ORDERED: DIPHENHYDRAMINE HCL 25 MG CAP PO PRN (10:00)
[2019-06-16] MEDS ORDERED: ACETAMINOPHEN/CODEINE 300MG - 30MG TAB PO PRN (10:00)
[2019-06-16] MEDS ORDERED: ACETAMINOPHEN 1000 MG/100 ML IV PRN (10:00)
[2019-06-16] MEDS ORDERED: HYDROMORPHONE 1MG/1ML INJ ONE ×2 (10:48→13:48)
[2019-06-16] MEDS ORDERED: ONDANSETRON HCL INJ 2MG/ML 2ML 2 MG/ML VIAL ONE ×2 (10:48→19:43)
[2019-06-16 11:38] LABS: BASOPHILS % 0.1 % (0.0-1.0); EOSINOPHILS % 0.4 % (0.0-6.0); HEMATOCRIT 28.8 % (38.2-49.6); HEMOGLOBIN 9.4 g/dL (14.0-18.0); LYMPHOCYTES # (AUTO) 0.5 (1.0-3.2); LYMPHOCYTES % 4.9 % (18.0-39.1); MEAN CORPUSCULAR HEMOGLOBIN 29.8 pg (28-32); MEAN CORPUSCULAR HGB CONC 32.6 g/dL (31-35); MEAN CORPUSCULAR VOLUME 91.4 fL (81-99); MONOCYTES # (AUTO) 0.2 (0.2-0.8); NEUTROPHILS # (AUTO) 9.5 (2.1-6.9); PLATELET COUNT 86 x10e3/uL (140-360); RED BLOOD COUNT 3.15 x10e6/uL (4.3-5.7); RED CELL DISTRIBUTION WIDTH 15.3 % (11.7-14.4)
[2019-06-16 11:55] LABS: ANION GAP 12.2 mmol/L (8-16); BLOOD UREA NITROGEN 23 mg/dL (7-26); BUN/CREATININE RATIO 20 (6-25); CALCIUM 7.8 mg/dL (8.4-10.2); CARBON DIOXIDE 24 mmol/L (22-29); CHLORIDE 110 mmol/L (98-107); CREATININE, SERUM 1.15 mg/dL (0.72-1.25); EST GLOMERULAR FILTRATION RATE > 60 ML/MIN (60-); GLUCOSE 248 mg/dL (74-118); POTASSIUM 5.2 mmol/L (3.5-5.1); SODIUM 141 mmol/L (136-145)
[2019-06-16] MEDS: PHENAZOPYRIDINE HCL 100 MG TAB PO SCH (15:48)
[2019-06-16 16:12] VITALS: BP 138/65
[2019-06-16 16:17] VITALS: BP 138/65
[2019-06-16] MEDS ORDERED: DOCUSATE SODIUM 100 MG CAP PO SCH (17:00)
[2019-06-16 17:17] VITALS: BP 187/86
[2019-06-16 17:31] VITALS: BP 187/86
[2019-06-16] MEDS ORDERED: HYDRALAZINE HCL 20 MG/ML VIAL IV PRN (18:15)
[2019-06-16] MEDS ORDERED: SOD POLYSTYRENE SULFONATE SUSP 15 GM/60 ML BTL PO ONE (18:30)
[2019-06-16] MEDS ORDERED: MAGNESIUM SULF 1GRAM/DEXTROSE 100 ML IV ONE (18:30)
[2019-06-16] MEDS ORDERED: MIDAZOLAM HCL 2 MG/2 ML VIAL ONE (19:29)
[2019-06-16] MEDS ORDERED: EPHEDRINE SULFATE INJ 50 MG/ML VIAL ONE (19:43)
[2019-06-16] MEDS ORDERED: DEXAMETHASONE SOD PHOS INJ 4 MG/ML VIAL ONE (19:43)
[2019-06-16] MEDS ORDERED: SEVOFLURANE INHAL SOLN 250 ML PEN BTL ONE (19:43)
[2019-06-16] MEDS ORDERED: PROPOFOL IV EMULSION 10 MG/ML 20 ML VIAL ONE (19:43)
[2019-06-16] MEDS ORDERED: LIDOCAINE HCL 2% LOCAL INJ 5 ML SDV VIAL INJ ONE (19:43)
[2019-06-16 20:00] VITALS: BP 169/71
--- NOTE | 2019-06-16 20:47 | NUR ---
TALKED TO 'S ZOO KEEPER. NOTIFIED OF FSBS 386 AND OF NO COVERAGE ORDERED. WAS INFORMED THAT GARO GRANADOS WILL BE NOTIFIED. WAITING FOR KETAN BACK.
[2019-06-16] MEDS ORDERED: INSULIN GLARGINE 100 UNITS/ML VIAL SQ SCH ×2 (21:00)
[2019-06-16] MEDS ORDERED: DEXTROSE 50% SYRINGE 50 ML IV PRN (21:00)
[2019-06-16] MEDS ORDERED: DOCUSATE SODIUM LIQD 100 MG/10 ML UDC NG SCH (21:00)
[2019-06-16] MEDS: DOCUSATE SODIUM 100 MG CAP PO SCH (21:00)
[2019-06-16] MEDS: SIMVASTATIN 40 MG TAB PO SCH (21:00)
--- NOTE | 2019-06-16 21:17 | History and Physical ---
PRIMARY CARE PHYSICIAN: Dr. Linda Ornelas. CHIEF COMPLAINT: Here for elective TURP. HISTORY OF PRESENT ILLNESS: Mr. Mcdaniel is a 69-year-old male with history of high-grade prostate cancer and history of pelvic lymphadenopathy as a staging procedure, who has been admitted for elective TURP. His COVID-19 test was negative. PAST MEDICAL HISTORY: BPH, high-grade prostate cancer, type 2 diabetes mellitus, renal calculi, hyperlipidemia, coronary artery disease, hypertension, gallstones, astigmatism at age 7, seasonal allergies. PAST SURGICAL HISTORY: 1. On 12/21/2018, he had a pelvic lymphadenopathy as a staging procedure. 2. Coronary artery bypass graft. 3. PCI with stent. 4. Left internal nephroureteral stent on 12/02/2018. 5. Tonsillectomy. 6. Inguinal hernia on the left with mesh. 7. Spinal leak, status post spinal tap. FAMILY HISTORY: Father had diabetes mellitus, RI and heart surgeries. Paternal grandfather had RI. SOCIAL HISTORY: Denies any use of tobacco, alcohol, or illicit drugs. ALLERGIES: NO KNOWN ALLERGIES. HOME MEDICATIONS: Include aspirin 81 mg, Plavix, glipizide, lisinopril, metformin, metoprolol tartrate 50 mg p.o. b.i.d., multivitamin, omega-3 fatty acid, fish oil, simvastatin, Flomax, Levemir 11 units subcutaneous b.i.d., Humalog insulin 5 units before meals t.i.d., and potassium citrate 1080 mg p.o. b.i.d. REVIEW OF SYSTEMS: CONSTITUTIONAL: The patient denies any significant weight loss or weight gain. Denies chills, fever. No difficulty with his eyes, ears, nose, throat except for seasonal allergies. RESPIRATORY: Denies any shortness of breath, cough, or phlegm. GENITOURINARY: Has some difficulty urinating now, but attributes that to his current catheter. PSYCHIATRIC: Denies psychiatric history. INTEGUMENTARY: Denies rash or lesions. CARDIOVASCULAR: Denies chest pain or palpitations. GASTROINTESTINAL: Denies nausea, vomiting, diarrhea, or constipation. His last bowel movement was 06/15/2019. MUSCULOSKELETAL: Denies joint pain. He does become stiff if he sits too long. NEUROLOGICAL: Denies headache or dizziness. ENDOCRINE: Known diabetic. HEMATOLOGIC: No complaints of bleeding. PHYSICAL EXAMINATION: VITAL SIGNS: Temperature 98.0, heart rate 60, blood pressure 138/65, respirations 16, and oxygen saturation 94% on room air. BMI 27.02. GENERAL: Relaxed, supine. LUNGS: Clear to auscultation. HEENT: Extraocular eye movements intact. NECK: Supple. No lymphadenopathy, thyromegaly, or JVD. CARDIOVASCULAR: Regular rate and rhythm. No murmurs. He has normal saline infusing 75 mL an hour through a peripheral IV. ABDOMEN: Bowel sounds positive. Soft and nontender. : He has a Zamora catheter with hematuria. EXTREMITIES: Without pitting edema. No clubbing, cyanosis, or notable swelling. No signs or symptoms of DVT. NEUROLOGICAL: GCS 15. Nonfocal. LABORATORY DATA: Sodium 141, potassium 5.2, chloride 110, CO2 24, BUN 23, creatinine 1.15, GFR greater than 60, and calcium 7.8. Fingerstick blood glucose 313. Magnesium 1.5. On 06/10, Coronavirus was negative. Chest x-ray on 06/10, showed no focal pneumonia or pulmonary edema. Had a 12-lead EKG on June 10 which showed sinus bradycardia with sinus rhythm and first-degree AV block, ventricular rate 55 beats per minute. The echocardiogram was done on 11/03/2018, which showed a calculated left ventricular ejection fraction of 75%. ADMITTING DIAGNOSES AND PLAN: 1. Benign prostatic hyperplasia with high-grade prostate cancer, status post start transurethral resection of the prostate on 06/16/[address] Smith, surgeon. We will continue to follow. Continue irrigation via Zamora catheter and monitor for clearing of hematuria. 2. Acute hyperkalemia. Potassium 5.2. We will give 15 g of Kayexalate once. 3. Type 2 diabetes mellitus, uncontrolled on Humalog 5 units before meals t.i.d. and decrease Levemir dose to 5 units q.12 hours. Monitor fingerstick blood glucose before meals and at bedtime. We will check hemoglobin A1c. Most recent was on 12/03/2018, 7.5%. 4. Acute hypomagnesemia. Magnesium level 1.5. We will give 1 g of magnesium sulfate IV once and reassess in the morning. 5. Controlled hypertension. Monitor BP and resume home medications. 6. Coronary artery disease with history of PCI with stent and coronary artery bypass graft. 7. Hyperlipidemia. Resume simvastatin. 8. Prophylaxis, Pepcid. Time spent, 60 minutes. Dictated by Imer Lubin, CELL EFFICIENCY SUPERVISOR MD MARCELLE CardenasP/MODL /[id number]
[2019-06-16] MEDS: INSULIN GLARGINE 100 UNITS/ML VIAL SQ SCH (21:23)
[2019-06-16] MEDS: INSULIN REGULAR, HUMAN 100 UNIT/1 ML 3ML VIAL SQ SCH (21:23)
--- NOTE | 2019-06-16 22:02 | Operative Report ---
DATE OF PROCEDURE: 06/16/2019 SURGEON: Dawson Smith MD PREOPERATIVE DIAGNOSES: 1. Obstructive benign prostatic hypertrophy. 2. History of urolithiasis. 3. Renal insufficiency. POSTOPERATIVE DIAGNOSES: 1. Obstructive benign prostatic hypertrophy. 2. History of urolithiasis. 3. Renal insufficiency. OPERATIONS PERFORMED: Note, these procedures are all staged procedures, not included in the global of the prior procedure. They are also done in the staged fashion. 1. Cystourethroscopy with bilateral ureteral catheterization and retrograde pyelography (separate procedure performed to evaluate kidney, bladder, renal insufficiency, and history of urolithiasis). 2. Interpretation of retrograde ureteropyelography, no radiologist present. 3. Supervision of fluoroscopy, no radiologist present. 4. Cystourethroscopy with transurethral resection of the prostate utilizing the PlasmaBand electrode. ANESTHESIA: General. COMPLICATIONS: None. CLINICAL SUMMARY: Eddie Mcdaniel is a complicated 69-year-old man. He was found to have an elevated PSA. Workup revealed high-grade prostate cancer. Pelvic lymphadenectomy revealed no evidence of aron metastatic disease. The patient had started hormone therapy in preparation radiotherapy. The patient has obstructive BPH and was needed to be brought to the operating room for transurethral resection of the prostate in order to optimize his urination and wait 6 months and proceed with radiotherapy. During the workup process, the patient also had urolithiasis. He underwent ESWL as well as stenting as well as ureteroscopy. The patient is brought to the operating room for the above procedures. He is aware of the risks of bleeding, infection, injury to adjacent structures, incontinence, impotence, retrograde ejaculation, need for additional procedures, and he elected to see. The patient was evaluated by finishing range operator and was deemed optimized for the surgery at this time. This procedure is not elective and is done during the COVID-19 emergency situation as delaying this procedure would delay management of the patient's high-grade prostate cancer. Further delaying this procedure will also result in deterioration of the patient's renal function as his high-pressure bladder may be transmitting pressure toward his less normal kidneys . OPERATIVE PROCEDURE IN DETAIL: Informed consent was verified. Eddie Mcdaniel was properly identified, taken to the operating room, placed in supine position, and anesthesia was uneventfully begun. The patient was then carefully and gently repositioned in the dorsal lithotomy position with all pressure points well padded. His genitalia were prepared and draped in usual sterile fashion. A 22.5-Ku[place]i drainage cystourethroscopy sheath was inserted under direct vision with visual obturator in place. There was very minimal amount of resistance at the level of the fossa navicularis consistent with a wide caliber, but not clinical significant stricture. The urethra was otherwise unremarkable. Sphincteric region was normal. Prostate bed was significant for visually obstructing BPH. We entered the patient's bladder, where there were grade 2 trabeculations, but no tumors, no stones, and no true diverticula. Normally positioned and configured ureteral orifices were identified. There were no suspicious lesions. The ureteral catheter was used to cannulate each ureter and retrograde ureteropyelograms were performed. Interpretation of retrograde ureteropyelography contrast was instilled in a retrograde fashion bilaterally. There were no tumors. There were no stones. There were no diverticula toward the patient's renal pelvis bilaterally, but no suspicious lesions were identified. Unobstructed drainage was observed bilaterally fluoroscopically. We gently dilated utilizing female sounds the fossa navicularis to 30-Ku[place]i in size. We then easily placed the resectoscope sheath with obturator in place. We utilized the PlasmaBand electrode to resect the prostate from the bladder neck to maneuver, past the verumontanum. We utilized the PlasmaBand electrode to resect the prostate from the bladder neck to maneuver, past the verumontanum and then we resected down the surgical capsule circumferentially. The prostate bed was totally cauterized in view of the fact that the patient needs to get back on his blood thinners as quickly as possible. All chips were evacuated and this was verified endoscopically. The resectoscope was withdrawn. A continuous flow large-bore catheter was placed. It was irrigated to and fro to ensure it worked properly. We placed some continuous irrigation with blood-tinged efflux emerging, but no clotting. A belladonna and opium suppository were placed revealing a large smooth prostate that was nonfluctuant. The patient was then uneventfully reversed from anesthesia and taken to the recovery room in good condition. There were no complications to the procedure. The patient tolerated the procedure well. Estimated blood loss was minimal. Explicit orders left in the chart. We will follow the patient up on an inpatient basis and of course on an ongoing outpatient basis. MD LASHONDA Polanco/SANTIL /[id number] cc: Linda Ornelas MD
[2019-06-17] VITALS (7 sets, daily range): BP systolic 144–183; BP diastolic 64–80
[2019-06-17 05:36] LABS: BASOPHILS % 0.2 % (0.0-1.0); EOSINOPHILS # (AUTO) 0.1 (0.0-0.4); EOSINOPHILS % 1.2 % (0.0-6.0); HEMATOCRIT 29.8 % (38.2-49.6); HEMOGLOBIN 9.4 g/dL (14.0-18.0); LYMPHOCYTES # (AUTO) 1.3 (1.0-3.2); LYMPHOCYTES % 15.9 % (18.0-39.1); MEAN CORPUSCULAR HEMOGLOBIN 29.1 pg (28-32); MEAN CORPUSCULAR HGB CONC 31.5 g/dL (31-35); MEAN CORPUSCULAR VOLUME 92.3 fL (81-99); MONOCYTES # (AUTO) 0.8 (0.2-0.8); MONOCYTES % 9.3 % (4.4-11.3); PLATELET COUNT 97 x10e3/uL (140-360); RED BLOOD COUNT 3.23 x10e6/uL (4.3-5.7); RED CELL DISTRIBUTION WIDTH 15.4 % (11.7-14.4)
--- NOTE | 2019-06-17 06:00 | NUR ---
PROVIDED JONES CARE WITH FELIPE WIPES. NO ADVERSE SIGNS.
[2019-06-17 06:12] LABS: ANION GAP 10.2 mmol/L (8-16); BLOOD UREA NITROGEN 21 mg/dL (7-26); BUN/CREATININE RATIO 18 (6-25); CALCIUM 8.2 mg/dL (8.4-10.2); CARBON DIOXIDE 25 mmol/L (22-29); CHLORIDE 107 mmol/L (98-107); CREATININE, SERUM 1.18 mg/dL (0.72-1.25); EST GLOMERULAR FILTRATION RATE > 60 ML/MIN (60-); GLUCOSE 243 mg/dL (74-118); MAGNESIUM 1.7 MG/DL (1.3-2.1); PHOSPHORUS 3.2 MG/DL (2.3-4.7); POTASSIUM 4.2 mmol/L (3.5-5.1); SODIUM 138 mmol/L (136-145)
[2019-06-17 06:33] LABS: THYROID STIMULATING HORMONE 1.066 uIU/mL (0.350-4.940)
--- NOTE | 2019-06-17 07:24 | NUR ---
REPORT GIVEN TO DAYSHIFT NURSE. NO ADVERSE SIGNS TO R HAND IV. NO ADVERSE SIGNS TO JONES. AAOX3. RESTING IN BED. BED LOCKED AND IN LOW POSITION. CALL LIGHT WITHIN REACH.
[2019-06-17] MEDS ORDERED: INSULIN LISPRO 5 UNIT SQ SCH (07:30)
[2019-06-17] MEDS ORDERED: INSULIN LISPRO 100 UNIT/1 ML 3ML VIAL SQ SCH (07:30)
[2019-06-17] MEDS: DOCUSATE SODIUM 100 MG CAP PO SCH ×3 (08:18→20:40)
[2019-06-17] MEDS: FAMOTIDINE 20 MG TAB PO SCH ×2 (08:18→17:18)
[2019-06-17] MEDS: METFORMIN HCL 500 MG TAB PO SCH ×2 (08:18→17:18)
[2019-06-17] MEDS: GLIPIZIDE 5 MG TAB PO SCH ×2 (08:18→17:18)
[2019-06-17] MEDS: TAMSULOSIN HCL 0.4 MG CAP PO SCH (08:19)
[2019-06-17] MEDS: MULTIVITAMINS/MINERALS TAB PO SCH (08:19)
[2019-06-17] MEDS: METOPROLOL TARTRATE 50 MG TAB PO SCH ×2 (08:19→17:18)
[2019-06-17] MEDS: PHENAZOPYRIDINE HCL 100 MG TAB PO SCH ×3 (08:20→18:38)
[2019-06-17] MEDS: LISINOPRIL 10 MG TAB PO SCH (08:20)
[2019-06-17] MEDS: OMEGA PO SCH (08:23)
[2019-06-17] MEDS: FATTY ACID PO SCH (08:23)
[2019-06-17] MEDS: CEFTRIAXONE SOD 1 GM/NS 50 ML 50 ML IV SCH (08:24)
[2019-06-17] MEDS: INSULIN GLARGINE 100 UNITS/ML VIAL SQ SCH ×2 (09:00→20:20)
[2019-06-17] MEDS ORDERED: CLOPIDOGREL BISULFATE 75 MG TAB PO SCH (09:00)
[2019-06-17] MEDS ORDERED: ASPIRIN 81 MG CHEW TAB PO SCH (09:00)
[2019-06-17] MEDS ORDERED: OMEGA 3 POLYUNSAT FATTY ACIDS 1000 MG SOFTGEL PO SCH (09:00)
[2019-06-17] MEDS ORDERED: INSULIN DETEMIR SQ SCH (09:00)
--- NOTE | 2019-06-17 09:25 | NUR ---
Pt. expressed no spiritual or emotional concerns at this time. Provided hospitality and information on how to reach wallpaper consultant, if needed. No need to follow at this time. TRAVIS CHEN Field Care Manager Spiritual Care Department O: [phone]
--- NOTE | 2019-06-17 09:56 | NUR ---
SPOKE WITH PT ABOUT [facility], SIGNED CHOICE FOR [facility] FAXED [facility]INICALS
[2019-06-17] MEDS: INSULIN REGULAR, HUMAN 100 UNIT/1 ML 3ML VIAL SQ SCH ×4 (11:14→20:20)
--- NOTE | 2019-06-17 11:33 | NUR ---
SPOKE WITH [facility] THEY ARE NOT IN NETWORK WITH THIS PLAN FAXED TO [facility].
[2019-06-17] MEDS: SODIUM CHLORIDE 0.9% 1000ML 1,000 ML IV SCH (12:40)
--- NOTE | 2019-06-17 15:00 | NUR ---
SPOKE WITH HOME CARE PROVIDERS THEY ARE IN NETWORK BUT CANNOT SEE PT ON FRIDAY BUT CAN SEE DAY OF DISCHARGE. LEFT ORDER ON CHART FOR SIGNATURE FROM DR RILEY. WILL NEED TO FAX WHEN GET IT RETURNED. TEXTED DR HA, AWARE AND WILL SIGN AND LEAVE FOR ME TO GET AND FAX.
--- NOTE | 2019-06-17 17:45 | Progress Note ---
DATE: 06/17/2019 SUBJECTIVE: The patient is lying supine in bed. He readily sits on the edge of the bed and states he has been congested for a week or two, has persistent cough. He had a bowel movement today. Denies any chest pain, palpitations, nausea, vomiting, diarrhea, or constipation. He had stated yesterday that he becomes stiff if he sits for too long. OBJECTIVE: VITAL SIGNS: Temperature 98.1, heart rate 60, blood pressure 168/85, respirations 18, and oxygen saturation 94%. GENERAL: In no acute distress, supine. LUNGS: Clear to auscultation, but has persistent cough, especially with deep inspiration, difficulty using his incentive spirometer correctly. HEENT: EOMI. NECK: Supple. CARDIOVASCULAR: Regular rate and rhythm. No murmur. He has normal saline infusing at 75 mL an hour through a peripheral IV. ABDOMEN: Bowel sounds positive. Soft, nontender. EXTREMITIES: Without pitting edema. No clubbing or cyanosis. No signs or symptoms of DVT. NEUROLOGIC: GCS 15. Nonfocal. LABORATORY DATA: Sodium 138, potassium 4.2, chloride 107, CO2 of 25, BUN 21, creatinine 1.18, estimated GFR greater than 60, and glucose 243, fingerstick blood glucose levels 366, 252, hemoglobin A1c 8%. Calcium 8.2, phosphorus 3.2, and magnesium 1.7. TSH 1.066. WBCs 8.18, hemoglobin 9.4, hematocrit 29.8, and platelets 97. ASSESSMENT AND PLAN: 1. BPH with high-grade prostate cancer, status post TURP on 06/[address] Smith. Continuous irrigation via Zamora catheter as per Urology. Hematuria has cleared. Urine appears orange. Continue Rocephin. 2. Acute hyperkalemia, resolved. Potassium 4.2, previously 5.2, status post Kayexalate yesterday. 3. Uncontrolled type 2 diabetes mellitus, receiving metformin 1000 mg b.i.d., glipizide 10 mg b.i.d., low-dose regular insulin sliding scale before meals and at bedtime. He takes Levemir at home, however, here he is on Lantus insulin 11 units subcu q.12 hours, we will increase to 15 units q.12 hours. Hemoglobin A1c is 8%. 4. Acute hypomagnesemia, improving. Magnesium level 1.7, previously 1.5. Monitor. 5. Uncontrolled hypertension. Blood pressure 180/79 this morning. Renal function has improved. Continue p.r.n. IV hydralazine. Lisinopril 10 mg daily. Metoprolol tartrate 50 mg b.i.d. Cardiology following. 6. Coronary artery disease with history of percutaneous coronary intervention with stent and coronary artery bypass graft. Continue DAPT with Plavix and aspirin. 7. Hyperlipidemia. Continue home dose of simvastatin. 8. Prophylaxis. Pepcid. The patient is able an ambulate. We will ask Physical Therapy to eval and treat. Time spent 35 minutes. Dictated by Imer Lubin NP Skinny Torre MD [facility]/MODL /[id number]
[2019-06-17] MEDS ORDERED: ACETAMINOPHEN 325 MG TAB PO PRN (19:15)
[2019-06-17] MEDS: SIMVASTATIN 40 MG TAB PO SCH (20:20)
--- NOTE | 2019-06-17 23:50 | NUR ---
JONES CARE PROVIDED WITH CASTILE SOAP WIPES. TOLERATED WELL. NO ADVERSE SIGNS.
[2019-06-18] VITALS: BP 175/80
[2019-06-18 04:00] VITALS: BP 151/91
[2019-06-18 04:49] LABS: BASOPHILS % 0.1 % (0.0-1.0); EOSINOPHILS # (AUTO) 0.1 (0.0-0.4); EOSINOPHILS % 1.6 % (0.0-6.0); HEMATOCRIT 29.5 % (38.2-49.6); HEMOGLOBIN 9.8 g/dL (14.0-18.0); LYMPHOCYTES # (AUTO) 1.1 (1.0-3.2); LYMPHOCYTES % 13.3 % (18.0-39.1); MEAN CORPUSCULAR HEMOGLOBIN 29.6 pg (28-32); MEAN CORPUSCULAR HGB CONC 33.2 g/dL (31-35); MONOCYTES # (AUTO) 0.6 (0.2-0.8); MONOCYTES % 7.1 % (4.4-11.3); NEUTROPHILS # (AUTO) 6.3 (2.1-6.9); NEUTROPHILS % 77.5 % (38.7-80.0); PLATELET COUNT 104 x10e3/uL (140-360); RED BLOOD COUNT 3.31 x10e6/uL (4.3-5.7); RED CELL DISTRIBUTION WIDTH 15.3 % (11.7-14.4)
[2019-06-18 04:55] LABS: MEAN CORPUSCULAR VOLUME 89.1 fL (81-99)
[2019-06-18 05:06] LABS: ANION GAP 12.5 mmol/L (8-16); BLOOD UREA NITROGEN 19 mg/dL (7-26); BUN/CREATININE RATIO 16 (6-25); CALCIUM 8.6 mg/dL (8.4-10.2); CARBON DIOXIDE 24 mmol/L (22-29); CHLORIDE 106 mmol/L (98-107); CREATININE, SERUM 1.16 mg/dL (0.72-1.25); EST GLOMERULAR FILTRATION RATE > 60 ML/MIN (60-); GLUCOSE 175 mg/dL (74-118); POTASSIUM 3.5 mmol/L (3.5-5.1); SODIUM 139 mmol/L (136-145)
--- NOTE | 2019-06-18 07:17 | NUR ---
BEDSIDE SHIFT REPORT GIVEN. PATIENT IN STABLE CONDITION. NO SIGNS OR SYMPTOMS OF DISTRESS NOTED.
[2019-06-18 07:48] VITALS: BP 166/74
[2019-06-18 08:00] VITALS: BP 166/74
[2019-06-18] MEDS: GLIPIZIDE 5 MG TAB PO SCH (08:56)
[2019-06-18] MEDS: METFORMIN HCL 500 MG TAB PO SCH (08:56)
[2019-06-18] MEDS: DOCUSATE SODIUM 100 MG CAP PO SCH (08:56)
[2019-06-18] MEDS: TAMSULOSIN HCL 0.4 MG CAP PO SCH (08:56)
[2019-06-18] MEDS: CEFTRIAXONE SOD 1 GM/NS 50 ML 50 ML IV SCH (08:56)
[2019-06-18] MEDS: FAMOTIDINE 20 MG TAB PO SCH (08:56)
[2019-06-18] MEDS: MULTIVITAMINS/MINERALS TAB PO SCH (08:57)
[2019-06-18] MEDS: METOPROLOL TARTRATE 50 MG TAB PO SCH (08:57)
[2019-06-18] MEDS: PHENAZOPYRIDINE HCL 100 MG TAB PO SCH ×2 (08:57→14:15)
[2019-06-18] MEDS: LISINOPRIL 10 MG TAB PO SCH (08:57)
[2019-06-18] MEDS: INSULIN GLARGINE 100 UNITS/ML VIAL SQ SCH (09:00)
[2019-06-18] MEDS: OMEGA PO SCH (09:00)
[2019-06-18] MEDS: FATTY ACID PO SCH (09:00)
[2019-06-18] MEDS ORDERED: GUAIFENESIN/DEXTROMETHORPHAN LIQD 5 ML UDC NG PRN (09:30)
[2019-06-18] MEDS ORDERED: LORATADINE 10 MG TAB PO SCH (10:45)
[2019-06-18] MEDS: INSULIN REGULAR, HUMAN 100 UNIT/1 ML 3ML VIAL SQ SCH (11:30)
[2019-06-18 11:56] VITALS: BP 170/81
[2019-06-18] MEDS ORDERED: POTASSIUM CHLORIDE 20 MEQ TAB CR PO STA (12:06)
[2019-06-18] MEDS ORDERED: TYLENOL # 31 EA PO (12:35)
[2019-06-18] MEDS ORDERED: CEFUROXIME250 MG PO (12:35)
--- NOTE | 2019-06-18 13:39 | Discharge Summary ---
PERTINENT HISTORY AND PHYSICAL FINDINGS: The patient is a 69-year-old male with a history of high-grade prostate cancer and history of pelvic lymphadenopathy, has a staging procedure of that, was admitted for elective TURP by Dr. Dawson Smith. ADMITTING DIAGNOSES: 1. Benign prostatic hyperplasia with high-grade prostate cancer, status post TURP on 06/16/[address] Smith. 2. Acute hyperkalemia. 3. Type 2 diabetes mellitus, uncontrolled. 4. Acute hypomagnesemia. 5. Controlled hypertension. 6. Coronary artery disease with history of percutaneous coronary intervention with stent and coronary artery bypass graft. 7. Hyperlipidemia. DISCHARGE DIAGNOSES: 1. Benign prostatic hyperplasia with high-grade prostate cancer, status post TURP on 06/16/[address] Smith. 2. Acute hyperkalemia. 3. Type 2 diabetes mellitus, uncontrolled. 4. Acute hypomagnesemia. 5. Controlled hypertension. 6. Coronary artery disease with history of percutaneous coronary intervention with stent, coronary artery bypass graft. 7. Hyperlipidemia. HOSPITAL COURSE: The patient has been on continuous Zamora irrigation. He will go home with his Zamora catheter. He still has hematuria today. Yesterday, his urine appeared more orange. His potassium was initially 5.2, but after treatment of Kayexalate 15 g, it brought it down to 4.2. Today, potassium level 3.5. His home doses of metformin and glipizide were resumed. He was on a low-dose sliding scale insulin before meals and at bedtime. He takes Levemir at home, however, while in the hospital, Lantus was used and was increased to 50 units every 12 hours. Hemoglobin A1c was 8%. Today's fingerstick blood glucose levels 198, 179. No change in physical exam. Today, the day of discharge, temperature 98.7, heart rate 72, blood pressure 166/74, respirations 17, and oxygen saturation 95%. DISCHARGE INSTRUCTIONS: The patient to continue ADA diet. Activity level as tolerated. He will follow up with Dr. Smith in a week. We will likely have a Zamora catheter removed later at that time, but he will go home with that for now. Prescriptions on the chart for Tylenol No. 3 as well as Ceftin. Follow up with PCP in 1-2 weeks. Dictated by Imer Lubin, APPLICATION DESIGNER MD KENNA Cardenas/MARTINE /[id number]
[2019-06-18] MEDS ORDERED: ONDANSETRON HCL 4 MG ORAL DISINTEGRATING TAB PO PRN (13:45)
--- NOTE | 2019-06-18 13:51 | NUR ---
OBTAINED SIGNATURE AND FAXED TO [facility], THEY WILL SEE THIS EVENING.
--- NOTE | 2019-06-18 14:58 | NUR ---
Pt discharged home at this time. Pt was educated on denney care and how to switch leg/big drainage bag. Pt verbalized understanding of all discharge instructions and follow up appointments. Pt was discharged with prescriptions for pain medications and antibiotics. All discharge was discussed with as well. Pt was discharged with home health.
== END 2019-06-18 14:58 | disposition home or self-care (01) | DRG 714 ==
LOC: OR 06:10 → PACU V 10:02 → MED/SURG 14:30
PROVIDERS: ADMIT Internal Medicine; ATTEND Internal Medicine
PROC: BT141ZZ Fluoroscopy of Kidneys, Ureters and Bladder using Low Osmolar Contrast (ICD-10-PCS; 2019-06-16)
PROC: 0VB08ZZ Excision of Prostate, Via Natural or Artificial Opening Endoscopic (ICD-10-PCS; principal; 2019-06-16 08:00)
PROC: 0T788ZZ Dilation of Bilateral Ureters, Via Natural or Artificial Opening Endoscopic (ICD-10-PCS; 2019-06-16 08:00)
DX: C61 Malignant neoplasm of prostate (principal); E87.5 Hyperkalemia; E11.65 Type 2 diabetes mellitus with hyperglycemia; Z95.1 Presence of aortocoronary bypass graft; Z95.5 Presence of coronary angioplasty implant and graft; E78.5 Hyperlipidemia, unspecified; E83.42 Hypomagnesemia; I10 Essential (primary) hypertension; I25.10 Atherosclerotic heart disease of native coronary artery without angina pectoris; N40.0 Benign prostatic hyperplasia without lower urinary tract symptoms; E87.6 Hypokalemia
CPT/HCPCS: 36415; 71046; 74420; 80048; 82948; 83036; 83735; 84100; 84443; 85025; 87635; 88305; 93005; 97139; J0360; J0696; J1100; J1170; J1580; J1815; J1817; J2001; J2250; J2405; J3010; J3475; J7030

== ENCOUNTER 2020-03-29 20:23 | Inpatient (IN) | payer MEDICARE ==
[~2020-03-29] VITALS: Ht 175.3 cm; Wt 96.7 kg
[~2020-03-29 20:23] MED LIST changes: +CEFUROXIME250 MG PO; +XARELTO20 MG PO
[2020-03-29] MEDS ORDERED: CEFTRIAXONE SOD 1 GM in SODIUM CHLORIDE 0.9% 50ML 50 ML IV ONE (22:30)
[2020-03-29] MEDS ORDERED: SODIUM CHLORIDE FLUSH 10 ML SYR INJ PRN (22:45)
[2020-03-29] MEDS: MORPHINE SULFATE INJ 2 MG/ML SYR IV PRN (23:16)
[2020-03-29] MEDS: HYDRALAZINE HCL 20 MG/ML VIAL IV PRN (23:16)
[2020-03-29] MEDS: ONDANSETRON HCL INJ 2MG/ML 2ML 2 MG/ML VIAL IV PRN (23:16)
[2020-03-29 23:45] VITALS: BP 175/81
[2020-03-29 23:51] LABS: BASOPHILS % 0.3 % (0.0-1.0); EOSINOPHILS # (AUTO) 0.1 (0.0-0.4); EOSINOPHILS % 0.7 % (0.0-6.0); HEMOGLOBIN 9.4 g/dL (14.0-18.0); LYMPHOCYTES # (AUTO) 0.8 (1.0-3.2); LYMPHOCYTES % 10.8 % (18.0-39.1); MEAN CORPUSCULAR HEMOGLOBIN 27.8 pg (28-32); MEAN CORPUSCULAR HGB CONC 30.3 g/dL (31-35); MEAN CORPUSCULAR VOLUME 91.7 fL (81-99); MONOCYTES # (AUTO) 0.5 (0.2-0.8); NEUTROPHILS # (AUTO) 5.8 (2.1-6.9); NEUTROPHILS % 80.8 % (38.7-80.0); PLATELET COUNT 144 x10e3/uL (140-360); RED BLOOD COUNT 3.38 x10e6/uL (4.3-5.7); RED CELL DISTRIBUTION WIDTH 15.4 % (11.7-14.4)
[2020-03-30] VITALS (7 sets, daily range): BP systolic 124–175; BP diastolic 59–94
[2020-03-30 00:01] LABS: INR 1.07; PARTIAL THROMBOPLASTIN TIME 31.7 seconds (23.8-35.5); PROTHROMBIN TIME 14.6 seconds (11.9-14.5)
[2020-03-30 00:10] LABS: ALBUMIN 3.9 g/dL (3.5-5.0); ANION GAP 14.3 mmol/L (8-16); CREATININE, SERUM 1.46 mg/dL (0.72-1.25); POTASSIUM 4.3 mmol/L (3.5-5.1)
[2020-03-30] MEDS: HYDRALAZINE HCL 20 MG/ML VIAL IV PRN (05:04)
[2020-03-30 05:20] LABS: BASOPHILS % 0.3 % (0.0-1.0); EOSINOPHILS % 0.5 % (0.0-6.0); HEMATOCRIT 30.6 % (38.2-49.6); HEMOGLOBIN 9.4 g/dL (14.0-18.0); LYMPHOCYTES # (AUTO) 0.8 (1.0-3.2); LYMPHOCYTES % 12.9 % (18.0-39.1); MEAN CORPUSCULAR HEMOGLOBIN 28.2 pg (28-32); MEAN CORPUSCULAR HGB CONC 30.7 g/dL (31-35); MEAN CORPUSCULAR VOLUME 91.9 fL (81-99); MONOCYTES # (AUTO) 0.5 (0.2-0.8); MONOCYTES % 7.2 % (4.4-11.3); NEUTROPHILS # (AUTO) 5.1 (2.1-6.9); NEUTROPHILS % 78.5 % (38.7-80.0); PLATELET COUNT 140 x10e3/uL (140-360); RED BLOOD COUNT 3.33 x10e6/uL (4.3-5.7); RED CELL DISTRIBUTION WIDTH 15.3 % (11.7-14.4)
[2020-03-30 05:49] LABS: ALBUMIN 3.7 g/dL (3.5-5.0); ANION GAP 16.6 mmol/L (8-16); CALCIUM 8.9 mg/dL (8.4-10.2); CREATININE, SERUM 1.43 mg/dL (0.72-1.25); POTASSIUM 4.6 mmol/L (3.5-5.1)
[2020-03-30] MEDS ORDERED: IOPAMIDOL 300MG/ML 50ML INFUS..BTL IV ONE (07:40)
[2020-03-30] MEDS ORDERED: B&O 60MG R/S 60 MG SUPP PR ONE (07:40)
[2020-03-30] MEDS ORDERED: INSULIN REGULAR, HUMAN 100 UNIT/1 ML 3ML VIAL ONE (07:43)
[2020-03-30] MEDS ORDERED: ACETAMINOPHEN 1000 MG/100 ML 100 ML IV ONE (09:08)
[2020-03-30] MEDS ORDERED: MORPHINE SULFATE INJ 4 MG/ML INJ 1ML ONE (09:20)
[2020-03-30] MEDS ORDERED: FUROSEMIDE INJ 10 MG/ML 4 ML VIAL ONE (09:32)
[2020-03-30] MEDS ORDERED: ALBUTEROL/IPRATROPIUM 3 ML NEB ONE (09:33)
[2020-03-30] MEDS ORDERED: DEXTROSE 50% SYRINGE 50 ML IV PRN (10:45)
[2020-03-30] MEDS: INSULIN LISPRO 100 UNIT/1 ML 3ML VIAL SQ SCH ×3 (11:30→21:00)
[2020-03-30] MEDS ORDERED: ONDANSETRON HCL INJ 2MG/ML 2ML 2 MG/ML VIAL ONE (13:11)
[2020-03-30] MEDS ORDERED: PROPOFOL IV EMULSION 10 MG/ML 20 ML VIAL ONE (13:11)
[2020-03-30] MEDS ORDERED: LIDOCAINE HCL 2% LOCAL INJ 5 ML SDV VIAL INJ ONE (13:11)
[2020-03-30] MEDS ORDERED: SEVOFLURANE INHAL SOLN 250 ML PEN BTL ONE (13:11)
[2020-03-30] MEDS ORDERED: FENTANYL CITRATE/PF 100MCG/2 ML INJ ONE (13:48)
[2020-03-30] MEDS ORDERED: MIDAZOLAM HCL 2 MG/2 ML VIAL ONE (13:48)
[2020-03-30] MEDS ORDERED: ACETAMINOPHEN 325 MG TAB PO PRN (14:00)
[2020-03-30] MEDS ORDERED: HYDRALAZINE HCL 20 MG/ML VIAL IV PRN (14:00)
[2020-03-30] MEDS: FAMOTIDINE 20 MG TAB PO SCH (16:11)
[2020-03-30] MEDS: METOPROLOL TARTRATE 50 MG TAB PO SCH (16:12)
[2020-03-30] MEDS ORDERED: INSULIN GLARGINE 100 UNITS/ML VIAL SQ SCH (17:00)
[2020-03-30] MEDS ORDERED: INSULIN DETEMIR SQ SCH (17:00)
[2020-03-30] MEDS: MELATONIN 5 MG TABLET PO SCH (20:07)
[2020-03-30] MEDS: SIMVASTATIN 40 MG TAB PO SCH (20:08)
[2020-03-31] VITALS (7 sets, daily range): BP systolic 144–159; BP diastolic 72–90
[2020-03-31] MEDS: ONDANSETRON HCL INJ 2MG/ML 2ML 2 MG/ML VIAL IV PRN (04:01)
[2020-03-31] MEDS: MORPHINE SULFATE INJ 2 MG/ML SYR IV PRN (04:01)
[2020-03-31 05:00] LABS: BASOPHILS % 0.3 % (0.0-1.0); EOSINOPHILS # (AUTO) 0.1 (0.0-0.4); EOSINOPHILS % 1.2 % (0.0-6.0); HEMATOCRIT 26.5 % (38.2-49.6); HEMOGLOBIN 8.1 g/dL (14.0-18.0); LYMPHOCYTES # (AUTO) 0.4 (1.0-3.2); LYMPHOCYTES % 5.3 % (18.0-39.1); MEAN CORPUSCULAR HEMOGLOBIN 28.8 pg (28-32); MEAN CORPUSCULAR HGB CONC 30.6 g/dL (31-35); MEAN CORPUSCULAR VOLUME 94.3 fL (81-99); MONOCYTES # (AUTO) 0.3 (0.2-0.8); NEUTROPHILS % 87.6 % (38.7-80.0); PLATELET COUNT 108 x10e3/uL (140-360); RED BLOOD COUNT 2.81 x10e6/uL (4.3-5.7); RED CELL DISTRIBUTION WIDTH 15.8 % (11.7-14.4)
[2020-03-31 05:17] LABS: ANION GAP 16.7 mmol/L (8-16); CALCIUM 8.3 mg/dL (8.4-10.2); CREATININE, SERUM 1.88 mg/dL (0.72-1.25); POTASSIUM 4.7 mmol/L (3.5-5.1)
[2020-03-31] MEDS: INSULIN LISPRO 100 UNIT/1 ML 3ML VIAL SQ SCH ×4 (08:30→21:45)
[2020-03-31] MEDS: FAMOTIDINE 20 MG TAB PO SCH ×2 (08:30→17:25)
[2020-03-31] MEDS: INSULIN GLARGINE 100 UNITS/ML VIAL SQ SCH ×2 (09:00→21:45)
[2020-03-31] MEDS: METOPROLOL TARTRATE 50 MG TAB PO SCH ×2 (10:00→21:45)
[2020-03-31] MEDS ORDERED: SODIUM CHLORIDE 0.9% 1000ML 1,000 ML IV SCH (10:45)
[2020-03-31] MEDS: SIMVASTATIN 40 MG TAB PO SCH (21:45)
[2020-03-31] MEDS: MELATONIN 5 MG TABLET PO SCH (21:45)
[2020-04-01] VITALS (8 sets, daily range): BP systolic 136–158; BP diastolic 64–80
[2020-04-01 06:06] LABS: BASOPHILS % 0.4 % (0.0-1.0); EOSINOPHILS % 0.7 % (0.0-6.0); HEMOGLOBIN 7.7 g/dL (14.0-18.0); LYMPHOCYTES # (AUTO) 0.6 (1.0-3.2); LYMPHOCYTES % 11.3 % (18.0-39.1); MEAN CORPUSCULAR HEMOGLOBIN 28.1 pg (28-32); MEAN CORPUSCULAR HGB CONC 29.6 g/dL (31-35); MEAN CORPUSCULAR VOLUME 94.9 fL (81-99); MONOCYTES # (AUTO) 0.5 (0.2-0.8); MONOCYTES % 8.1 % (4.4-11.3); NEUTROPHILS # (AUTO) 4.4 (2.1-6.9); NEUTROPHILS % 79.1 % (38.7-80.0); PLATELET COUNT 104 x10e3/uL (140-360); RED BLOOD COUNT 2.74 x10e6/uL (4.3-5.7); RED CELL DISTRIBUTION WIDTH 15.6 % (11.7-14.4)
[2020-04-01 06:24] LABS: ALBUMIN/GLOBULIN RATIO 0.9 (0.8-2.0); ANION GAP 14.7 mmol/L (8-16); CREATININE, SERUM 1.83 mg/dL (0.72-1.25); POTASSIUM 4.7 mmol/L (3.5-5.1)
[2020-04-01] MEDS: INSULIN LISPRO 100 UNIT/1 ML 3ML VIAL SQ SCH ×4 (08:30→21:12)
[2020-04-01] MEDS: FAMOTIDINE 20 MG TAB PO SCH ×2 (08:30→16:30)
[2020-04-01] MEDS: METOPROLOL TARTRATE 50 MG TAB PO SCH ×2 (08:30→21:10)
[2020-04-01] MEDS: INSULIN GLARGINE 100 UNITS/ML VIAL SQ SCH ×2 (08:59→21:00)
[2020-04-01] MEDS ORDERED: SODIUM CHLORIDE 0.45% 1,000 ML IV SCH (09:30)
[2020-04-01] MEDS ORDERED: SODIUM CHLORIDE 0.9% 250ML 250 ML IV ONE (11:30)
[2020-04-01] MEDS ORDERED: FUROSEMIDE INJ 10 MG/ML 2 ML VIAL IV ONE (18:00)
[2020-04-01] MEDS ORDERED: SODIUM CHLORIDE 0.9% 1000ML 1,000 ML IV SCH (20:00)
[2020-04-01] MEDS: MELATONIN 5 MG TABLET PO SCH (21:09)
[2020-04-01] MEDS: SIMVASTATIN 40 MG TAB PO SCH (21:09)
[2020-04-02] VITALS: BP 117/63
[2020-04-02 04:01] VITALS: BP 148/72
[2020-04-02 06:41] LABS: BASOPHILS % 0.4 % (0.0-1.0); EOSINOPHILS # (AUTO) 0.1 (0.0-0.4); EOSINOPHILS % 2.1 % (0.0-6.0); HEMATOCRIT 28.2 % (38.2-49.6); HEMOGLOBIN 8.7 g/dL (14.0-18.0); LYMPHOCYTES # (AUTO) 0.9 (1.0-3.2); LYMPHOCYTES % 18.2 % (18.0-39.1); MEAN CORPUSCULAR HEMOGLOBIN 28.2 pg (28-32); MEAN CORPUSCULAR HGB CONC 30.9 g/dL (31-35); MEAN CORPUSCULAR VOLUME 91.6 fL (81-99); MONOCYTES # (AUTO) 0.5 (0.2-0.8); MONOCYTES % 10.6 % (4.4-11.3); NEUTROPHILS # (AUTO) 3.3 (2.1-6.9); NEUTROPHILS % 68.1 % (38.7-80.0); PLATELET COUNT 92 x10e3/uL (140-360); RED BLOOD COUNT 3.08 x10e6/uL (4.3-5.7); RED CELL DISTRIBUTION WIDTH 16.3 % (11.7-14.4)
[2020-04-02 06:57] LABS: ALBUMIN 2.9 g/dL (3.5-5.0); ALBUMIN/GLOBULIN RATIO 0.9 (0.8-2.0); ANION GAP 12.2 mmol/L (8-16); CALCIUM 8.1 mg/dL (8.4-10.2); POTASSIUM 4.2 mmol/L (3.5-5.1)
[2020-04-02 07:45] LABS: CREATININE, SERUM 1.39 mg/dL (0.72-1.25)
[2020-04-02 08:01] VITALS: BP 167/75
[2020-04-02] MEDS: INSULIN LISPRO 100 UNIT/1 ML 3ML VIAL SQ SCH ×2 (08:30→11:30)
[2020-04-02] MEDS: FAMOTIDINE 20 MG TAB PO SCH (08:30)
[2020-04-02] MEDS: METOPROLOL TARTRATE 50 MG TAB PO SCH (08:30)
[2020-04-02] MEDS: INSULIN GLARGINE 100 UNITS/ML VIAL SQ SCH (08:46)
[2020-04-02 08:50] VITALS: BP 167/75
[2020-04-02] MEDS ORDERED: METOPROLOL TART50 MG PO (10:05)
[2020-04-02] MEDS ORDERED: FUROSEMIDE INJ 10 MG/ML 2 ML VIAL IV ONE (12:15)
[2020-04-02 12:33] VITALS: BP 129/79
[2020-04-02] MEDS ORDERED: METOPROLOL TARTRATE 25 MG TAB PO SCH (21:00)
== END 2020-04-02 12:00 | disposition home or self-care (01) | DRG 669 ==
LOC: ER 20:40 → ERHOLD 22:40 → MED/SURG 23:51 → OBSVTOIN 03-31 15:18
PROVIDERS: ADMIT Internal Medicine; ATTEND Internal Medicine
PROC: BT141ZZ Fluoroscopy of Kidneys, Ureters and Bladder using Low Osmolar Contrast (ICD-10-PCS; 2020-03-30)
PROC: 0T7D8ZZ Dilation of Urethra, Via Natural or Artificial Opening Endoscopic (ICD-10-PCS; 2020-03-30)
PROC: 0T5C8ZZ Destruction of Bladder Neck, Via Natural or Artificial Opening Endoscopic (ICD-10-PCS; principal; 2020-03-30 09:30)
PROC: 0T788ZZ Dilation of Bilateral Ureters, Via Natural or Artificial Opening Endoscopic (ICD-10-PCS; 2020-03-30 09:30)
PROC: 30233N1 Transfusion of Nonautologous Red Blood Cells into Peripheral Vein, Percutaneous Approach (ICD-10-PCS; 2020-04-01)
DX: N32.89 Other specified disorders of bladder (principal); D62 Acute posthemorrhagic anemia; N17.9 Acute kidney failure, unspecified; N39.0 Urinary tract infection, site not specified; I48.0 Paroxysmal atrial fibrillation; I25.10 Atherosclerotic heart disease of native coronary artery without angina pectoris; C61 Malignant neoplasm of prostate; Z95.1 Presence of aortocoronary bypass graft; Z66 Do not resuscitate; Z20.822 Contact with and (suspected) exposure to COVID-19; E11.65 Type 2 diabetes mellitus with hyperglycemia; E78.00 Pure hypercholesterolemia, unspecified; N40.1 Benign prostatic hyperplasia with lower urinary tract symptoms; R33.8 Other retention of urine; E66.9 Obesity, unspecified; Z68.31 Body mass index [BMI] 31.0-31.9, adult; I12.9 Hypertensive chronic kidney disease with stage 1 through stage 4 chronic kidney disease, or unspecified chronic kidney disease; N18.9 Chronic kidney disease, unspecified
CPT/HCPCS: 36415; 74420; 80048; 80053; 82948; 83036; 85025; 85610; 85730; 86850; 86900; 86920; 93005; 99284; C1758; G0378; J0360; J0696; J1815; J1817; J1940; J2001; J2250; J2270; J2405; J3010; J7030; J7050; P9016; U0002

== ENCOUNTER 2020-05-27 10:12 | Inpatient (IN) | payer MEDICARE, OTHER ==
[2020-05-27] MEDS ORDERED: ASPIRIN 81 MG CHEW TAB PO ONE (11:45)
[2020-05-27] MEDS ORDERED: LIDOCAINE 4% PATCH TP PRN (12:00)
[2020-05-27] MEDS ORDERED: POTASSIUM CHLORIDE 20 MEQ TAB CR PO PRN (12:00)
[2020-05-27] MEDS ORDERED: DIPHENHYDRAMINE HCL 25 MG CAP PO PRN (12:00)
[2020-05-27] MEDS ORDERED: BENZONATATE 100 MG CAP PO PRN (12:00)
[2020-05-27] MEDS ORDERED: DEXTROSE 50% SYRINGE 50 ML IV PRN ×2 (12:00)
[2020-05-27] MEDS ORDERED: DOCUSATE SODIUM 100 MG CAP PO PRN (12:00)
[2020-05-27] MEDS ORDERED: HYDRALAZINE HCL 20 MG/ML VIAL IV PRN (12:00)
[2020-05-27] MEDS ORDERED: MELATONIN 5 MG TABLET PO PRN (12:00)
[2020-05-27] MEDS ORDERED: ALBUTEROL/IPRATROPIUM 3 ML NEB NEB PRN (12:00)
[2020-05-27] MEDS ORDERED: TRAMADOL HCL 50 MG TAB PO PRN (12:00)
[2020-05-27] MEDS ORDERED: ONDANSETRON HCL INJ 2MG/ML 2ML 2 MG/ML VIAL IV PRN (12:00)
[2020-05-27] MEDS ORDERED: ACETAMINOPHEN 325 MG TAB PO PRN (12:00)
[2020-05-27] MEDS ORDERED: POLYETHYLENE GLYCOL 3350 17 GM PACK PO PRN (12:00)
[2020-05-27 12:01] VITALS: BP 165/82
[2020-05-27 12:33] LABS: BASOPHILS % 0.2 % (0.0-1.0); EOSINOPHILS # (AUTO) 0.1 (0.0-0.4); EOSINOPHILS % 1.5 % (0.0-6.0); HEMOGLOBIN 8.6 g/dL (14.0-18.0); LYMPHOCYTES % 18.4 % (18.0-39.1); MEAN CORPUSCULAR HEMOGLOBIN 28.5 pg (28-32); MEAN CORPUSCULAR HGB CONC 30.7 g/dL (31-35); MEAN CORPUSCULAR VOLUME 92.7 fL (81-99); MONOCYTES # (AUTO) 0.4 (0.2-0.8); MONOCYTES % 7.4 % (4.4-11.3); NEUTROPHILS # (AUTO) 3.7 (2.1-6.9); NEUTROPHILS % 71.9 % (38.7-80.0); PLATELET COUNT 126 x10e3/uL (140-360); RED BLOOD COUNT 3.02 x10e6/uL (4.3-5.7); RED CELL DISTRIBUTION WIDTH 16.4 % (11.7-14.4)
[2020-05-27 13:02] LABS: ALBUMIN 3.6 g/dL (3.5-5.0); ALBUMIN/GLOBULIN RATIO 0.9 (0.8-2.0); ANION GAP 13.2 mmol/L (8-16); CALCIUM 8.7 mg/dL (8.4-10.2); CREATININE, SERUM 1.46 mg/dL (0.72-1.25); POTASSIUM 4.2 mmol/L (3.5-5.1)
[2020-05-27 13:25] LABS: % IRON SATURATION 11 % (15-50); IRON 45 ug/dL (65-175); TOTAL IRON BINDING CAPACITY 406 ug/dL (261-478); TRANSFERRIN 290 mg/dL (174-364)
[2020-05-27] MEDS: FUROSEMIDE INJ 100 MG in SODIUM CHLORIDE 0.9% 100 ML 90 ML IV SCH (13:44)
[2020-05-27 15:50] VITALS: BP 162/77
[2020-05-27 16:19] VITALS: BP 162/77
[2020-05-27 16:52] VITALS: BP 162/77
[2020-05-27] MEDS: INSULIN GLARGINE 100 UNITS/ML VIAL SQ SCH (18:43)
[2020-05-27] MEDS: ENOXAPARIN SOD INJ 40 MG/0.4 ML SYR SC SCH (18:43)
[2020-05-27 20:00] VITALS: BP 130/75
[2020-05-27] MEDS: SIMVASTATIN 40 MG TAB PO SCH (20:53)
[2020-05-27] MEDS: METOPROLOL TARTRATE 50 MG TAB PO SCH (20:53)
[2020-05-28] VITALS (8 sets, daily range): BP systolic 123–160; BP diastolic 49–90
[2020-05-28 07:19] LABS: BASOPHILS % 0.2 % (0.0-1.0); EOSINOPHILS # (AUTO) 0.1 (0.0-0.4); HEMATOCRIT 27.9 % (38.2-49.6); HEMOGLOBIN 8.8 g/dL (14.0-18.0); LYMPHOCYTES # (AUTO) 0.9 (1.0-3.2); LYMPHOCYTES % 21.3 % (18.0-39.1); MEAN CORPUSCULAR HEMOGLOBIN 28.9 pg (28-32); MEAN CORPUSCULAR HGB CONC 31.5 g/dL (31-35); MEAN CORPUSCULAR VOLUME 91.5 fL (81-99); MONOCYTES # (AUTO) 0.3 (0.2-0.8); MONOCYTES % 7.5 % (4.4-11.3); NEUTROPHILS % 68.8 % (38.7-80.0); PLATELET COUNT 110 x10e3/uL (140-360); RED BLOOD COUNT 3.05 x10e6/uL (4.3-5.7); RED CELL DISTRIBUTION WIDTH 16.5 % (11.7-14.4)
[2020-05-28 07:54] LABS: THYROID STIMULATING HORMONE 1.398 uIU/mL (0.350-4.940)
[2020-05-28 07:58] LABS: ALBUMIN 3.3 g/dL (3.5-5.0); ALBUMIN/GLOBULIN RATIO 0.9 (0.8-2.0); CALCIUM 8.3 mg/dL (8.4-10.2); CHOL/HDL RATIO 2.9 (3.9-4.7); CREATININE, SERUM 1.63 mg/dL (0.72-1.25); MAGNESIUM 1.7 MG/DL (1.3-2.1); PHOSPHORUS 4.9 MG/DL (2.3-4.7)
[2020-05-28] MEDS: PANTOPRAZOLE SOD 40 MG TABEC PO SCH (08:40)
[2020-05-28] MEDS: TAMSULOSIN HCL 0.4 MG CAP PO SCH (08:40)
[2020-05-28] MEDS: ASPIRIN 81 MG CHEW TAB PO SCH (08:40)
[2020-05-28] MEDS: METOPROLOL TARTRATE 50 MG TAB PO SCH (08:41)
[2020-05-28] MEDS: INSULIN GLARGINE 100 UNITS/ML VIAL SQ SCH ×2 (08:42→22:31)
[2020-05-28 09:22] LABS: CREATINE KINASE MB 2.2 ng/mL (0-5.0)
[2020-05-28] MEDS: FUROSEMIDE INJ 100 MG in SODIUM CHLORIDE 0.9% 100 ML 90 ML IV SCH (12:52)
[2020-05-28] MEDS ORDERED: DEXTROSE 50% SYRINGE 50 ML IV PRN ×2 (13:15→21:00)
[2020-05-28] MEDS: ENOXAPARIN SOD INJ 40 MG/0.4 ML SYR SC SCH (17:14)
[2020-05-28] MEDS: SIMVASTATIN 40 MG TAB PO SCH (21:52)
[2020-05-28] MEDS: VALSARTAN/SACUBITRIL 24MG/26MG 1 EA TAB PO SCH (21:52)
[2020-05-28] MEDS: RIVAROXABAN 20 MG TABLET PO SCH (21:52)
[2020-05-28] MEDS: INSULIN LISPRO 100 UNIT/1 ML 3ML VIAL SQ SCH (21:52)
[2020-05-29] VITALS (8 sets, daily range): BP systolic 112–139; BP diastolic 52–81
[2020-05-29 07:10] LABS: BASOPHILS % 0.4 % (0.0-1.0); EOSINOPHILS # (AUTO) 0.1 (0.0-0.4); EOSINOPHILS % 2.3 % (0.0-6.0); HEMATOCRIT 32.1 % (38.2-49.6); HEMOGLOBIN 10.1 g/dL (14.0-18.0); LYMPHOCYTES # (AUTO) 1.2 (1.0-3.2); LYMPHOCYTES % 22.5 % (18.0-39.1); MEAN CORPUSCULAR HEMOGLOBIN 28.3 pg (28-32); MEAN CORPUSCULAR HGB CONC 31.5 g/dL (31-35); MEAN CORPUSCULAR VOLUME 89.9 fL (81-99); MONOCYTES # (AUTO) 0.4 (0.2-0.8); MONOCYTES % 7.8 % (4.4-11.3); NEUTROPHILS # (AUTO) 3.5 (2.1-6.9); NEUTROPHILS % 66.6 % (38.7-80.0); PLATELET COUNT 152 x10e3/uL (140-360); RED BLOOD COUNT 3.57 x10e6/uL (4.3-5.7); RED CELL DISTRIBUTION WIDTH 16.3 % (11.7-14.4)
[2020-05-29] MEDS: INSULIN LISPRO 100 UNIT/1 ML 3ML VIAL SQ SCH ×4 (07:30→21:00)
[2020-05-29] MEDS ORDERED: FUROSEMIDE INJ 100 MG in SODIUM CHLORIDE 0.9% 100 ML 90 ML IV SCH ×2 (07:30→08:00)
[2020-05-29 08:03] LABS: ALBUMIN 3.8 g/dL (3.5-5.0); ALBUMIN/GLOBULIN RATIO 0.9 (0.8-2.0); ANION GAP 16.8 mmol/L (8-16); CALCIUM 9.1 mg/dL (8.4-10.2); CREATININE, SERUM 1.77 mg/dL (0.72-1.25); POTASSIUM 3.8 mmol/L (3.5-5.1)
[2020-05-29] MEDS: METOPROLOL SUCCINATE 50 MG TAB XL PO SCH (09:22)
[2020-05-29] MEDS: VALSARTAN/SACUBITRIL 24MG/26MG 1 EA TAB PO SCH ×2 (09:22→20:21)
[2020-05-29] MEDS: INSULIN GLARGINE 100 UNITS/ML VIAL SQ SCH ×2 (09:23→21:00)
[2020-05-29] MEDS: TAMSULOSIN HCL 0.4 MG CAP PO SCH (09:26)
[2020-05-29] MEDS: PANTOPRAZOLE SOD 40 MG TABEC PO SCH (09:26)
[2020-05-29] MEDS: ASPIRIN 81 MG CHEW TAB PO SCH (09:26)
[2020-05-29] MEDS: CLOPIDOGREL BISULFATE 75 MG TAB PO SCH (09:26)
[2020-05-29 13:16] LABS: CREATINE KINASE MB 1.9 ng/mL (0-5.0)
[2020-05-29] MEDS: ACETAZOLAMIDE 250 MG TAB PO SCH ×2 (13:47→16:33)
[2020-05-29] MEDS: RIVAROXABAN 20 MG TABLET PO SCH (16:33)
[2020-05-29] MEDS: SIMVASTATIN 40 MG TAB PO SCH (20:21)
[2020-05-29] MEDS: FUROSEMIDE INJ 10 MG/ML 4 ML VIAL IV SCH (20:21)
[2020-05-30 00:23] VITALS: BP 102/65
[2020-05-30 06:03] VITALS: BP 117/88
[2020-05-30 06:52] LABS: BASOPHILS % 0.2 % (0.0-1.0); EOSINOPHILS # (AUTO) 0.1 (0.0-0.4); HEMATOCRIT 31.5 % (38.2-49.6); HEMOGLOBIN 9.9 g/dL (14.0-18.0); LYMPHOCYTES % 22.4 % (18.0-39.1); MEAN CORPUSCULAR HEMOGLOBIN 28.3 pg (28-32); MEAN CORPUSCULAR HGB CONC 31.4 g/dL (31-35); MONOCYTES # (AUTO) 0.4 (0.2-0.8); MONOCYTES % 8.4 % (4.4-11.3); NEUTROPHILS # (AUTO) 3.1 (2.1-6.9); NEUTROPHILS % 65.6 % (38.7-80.0); PLATELET COUNT 125 x10e3/uL (140-360); RED CELL DISTRIBUTION WIDTH 16.3 % (11.7-14.4)
[2020-05-30 07:18] LABS: ANION GAP 14.2 mmol/L (8-16); CALCIUM 8.2 mg/dL (8.4-10.2); CREATININE, SERUM 1.9 mg/dL (0.72-1.25); POTASSIUM 3.2 mmol/L (3.5-5.1)
[2020-05-30 07:59] VITALS: BP 105/63
[2020-05-30 08:17] VITALS: BP 105/63
[2020-05-30] MEDS: CLOPIDOGREL BISULFATE 75 MG TAB PO SCH (09:38)
[2020-05-30] MEDS: TAMSULOSIN HCL 0.4 MG CAP PO SCH (09:38)
[2020-05-30] MEDS: FUROSEMIDE INJ 10 MG/ML 4 ML VIAL IV SCH (09:38)
[2020-05-30] MEDS: ACETAZOLAMIDE 250 MG TAB PO SCH (09:38)
[2020-05-30] MEDS: PANTOPRAZOLE SOD 40 MG TABEC PO SCH (09:38)
[2020-05-30] MEDS: METOPROLOL SUCCINATE 50 MG TAB XL PO SCH (09:38)
[2020-05-30] MEDS: VALSARTAN/SACUBITRIL 24MG/26MG 1 EA TAB PO SCH (09:38)
[2020-05-30] MEDS: INSULIN GLARGINE 100 UNITS/ML VIAL SQ SCH (09:44)
[2020-05-30] MEDS: INSULIN LISPRO 100 UNIT/1 ML 3ML VIAL SQ SCH ×2 (09:45→12:30)
[2020-05-30 11:41] VITALS: BP 133/74
[2020-05-30] MEDS ORDERED: LASIX40 MG PO (14:59)
[2020-05-30] MEDS ORDERED: PLAVIX75 MG PO (15:00)
[2020-05-30] MEDS ORDERED: XARELTO10 MG PO (15:00)
[2020-05-30] MEDS ORDERED: ENTRESTO 24 MG1 EACH (15:01)
== END 2020-05-30 15:30 | disposition home or self-care (01) | DRG 291 ==
LOC: MED/SURG3 10:58
PROVIDERS: ADMIT Internal Medicine; ATTEND Internal Medicine
DX: I13.0 Hypertensive heart and chronic kidney disease with heart failure and stage 1 through stage 4 chronic kidney disease, or unspecified chronic kidney disease (principal); I50.43 Acute on chronic combined systolic (congestive) and diastolic (congestive) heart failure; N17.9 Acute kidney failure, unspecified; I48.0 Paroxysmal atrial fibrillation; N18.9 Chronic kidney disease, unspecified; Z20.822 Contact with and (suspected) exposure to COVID-19; R06.02 Shortness of breath; I25.10 Atherosclerotic heart disease of native coronary artery without angina pectoris; Z85.46 Personal history of malignant neoplasm of prostate; Z95.1 Presence of aortocoronary bypass graft; N40.0 Benign prostatic hyperplasia without lower urinary tract symptoms; E11.22 Type 2 diabetes mellitus with diabetic chronic kidney disease
CPT/HCPCS: 36415; 71045; 80048; 80053; 80061; 82550; 82553; 82948; 83036; 83540; 83735; 84100; 84443; 84466; 84484; 85025; 93306; 99251; J1650; J1815; J1940

== ENCOUNTER → 2020-07-03 | Day surgery (SDC) | payer MEDICARE ==
[2020-06-30 09:03] LABS: BASOPHILS % 0.2 % (0.0-1.0); EOSINOPHILS # (AUTO) 0.1 (0.0-0.4); EOSINOPHILS % 2.5 % (0.0-6.0); HEMATOCRIT 31.2 % (38.2-49.6); LYMPHOCYTES # (AUTO) 0.9 (1.0-3.2); LYMPHOCYTES % 18.7 % (18.0-39.1); MEAN CORPUSCULAR HEMOGLOBIN 29.4 pg (28-32); MEAN CORPUSCULAR HGB CONC 32.1 g/dL (31-35); MEAN CORPUSCULAR VOLUME 91.8 fL (81-99); MONOCYTES # (AUTO) 0.4 (0.2-0.8); MONOCYTES % 7.6 % (4.4-11.3); NEUTROPHILS # (AUTO) 3.3 (2.1-6.9); NEUTROPHILS % 70.6 % (38.7-80.0); PLATELET COUNT 99 x10e3/uL (140-360); RED CELL DISTRIBUTION WIDTH 15.9 % (11.7-14.4)
[~2020-07-03] MED LIST changes: +ENTRESTO 24 MG1 EACH; +GLUCAGON FOR INJ 1 MG VIAL ONE; +INSULIN REGULAR, HUMAN 100 UNIT/1 ML 3ML VIAL ONE; +LASIX40 MG PO; +PLAVIX75 MG PO; +PROPOFOL IV EMULSION 10 MG/ML 20 ML VIAL ONE; +XARELTO10 MG PO
[2020-07-03 12:30] VITALS: BP 147/87
== END | disposition home or self-care (01) ==
LOC: OR 08:12
PROVIDERS: ATTEND Internal Medicine Gastroenterology
DX: Z12.11 Encounter for screening for malignant neoplasm of colon (principal); D12.0 Benign neoplasm of cecum; D12.2 Benign neoplasm of ascending colon; D12.3 Benign neoplasm of transverse colon; K29.60 Other gastritis without bleeding; E11.9 Type 2 diabetes mellitus without complications; D64.89 Other specified anemias; I25.810 Atherosclerosis of coronary artery bypass graft(s) without angina pectoris; I11.0 Hypertensive heart disease with heart failure; I50.9 Heart failure, unspecified; I48.91 Unspecified atrial fibrillation; R01.1 Cardiac murmur, unspecified; Z01.812 Encounter for preprocedural laboratory examination; Z20.822 Contact with and (suspected) exposure to COVID-19; Z79.4 Long term (current) use of insulin; Z79.02 Long term (current) use of antithrombotics/antiplatelets; Z68.31 Body mass index [BMI] 31.0-31.9, adult; Z85.46 Personal history of malignant neoplasm of prostate; Z95.1 Presence of aortocoronary bypass graft
CPT/HCPCS: 36415 ×2; 43239; 45385; 82948; 85025; J1610; J2704; U0002; 45378; 45384; J1817